=== PATIENT | female | born 1970 | race American Indian/Alaskan Native ===

== ENCOUNTER 2018-09-12 14:05 | Inpatient (IN) | payer OTHER ==
--- NOTE | 2018-09-12 14:29 | Cat Scan Report ---
FINAL REPORT EXAM: CT HEAD/BRAIN WO CON HISTORY: Stroke symptoms TECHNIQUE: CT of the head was performed. No intravenous contrast was administered. PRIORS: None. FINDINGS: There is no evidence of intracranial hemorrhage. There is no edema, mass effect or midline shift. There are no abnormal extra-axial fluid collections. The ventricles are appropriate for brain volume. There is no skull fracture seen. The visualized aspects of the sinuses are clear. IMPRESSION: There is no acute intracranial abnormality identified.
[2018-09-12 14:40] LABS: Hemoglobin 14.3 gm/dl (10.1-14.3); Mean Corpuscular HGB Conc 32 % (30-34); Mean Corpuscular Volume 91 fl (79-97); Platelet Count 315 K/mm3 (140-440); Red Blood Count 4.83 M/mm3 (3.65-5.03); Red Cell Distribution Width 14.6 % (13.2-15.2)
--- NOTE | 2018-09-12 14:42 | Emergency Department Report ---
HPI - General Time Seen by Provider: 09/12/18 14:05 - HPI HPI: 48-year-old -[place] female presents to the emergency department via EMS after she was found having fallen in the kitchen and being found unresponsive. The patient's daughters boyfriend found the patient on the ground with some convulsions. EMS found the patient has some signs of right sided deficits. The patient herself is currently a poor historian secondary to her medical acuity. She has a past medical history of diabetes and gallstones. ED Review of Systems ROS: Stated complaint: POSS STROKE Other details as noted in HPI Comment: Unobtainable due to pts medical conditions Physical Exam - Physical Exam Physical Exam: GENERAL: The patient is ill-appearing and unresponsive. HEENT: Normocephalic. Atraumatic. Patient has moist mucous membranes. EYES: There is a mild left-sided gaze preference. Pupils are equal and reactive to light bilaterally. No spontaneous eye opening. NECK: Supple. Trachea is midline. CHEST/LUNGS: Clear to auscultation. There is no respiratory distress noted. HEART/CARDIOVASCULAR: Regular. There is no tachycardia. There is no obvious murmur. ABDOMEN: Abdomen is soft, nontender. Patient has normal bowel sounds. There is no abdominal distention. SKIN: Skin is warm and dry. NEURO: The patient is unresponsive but does withdraw from painful stimuli with to the left upper and lower extremities. There is barely any right-sided extremity response and appears hemiparetic. There is a mild right-sided facial droop. Positive gag reflex. MUSCULOSKELETAL: There is no obvious deformity. There is no evidence of acute in jury. ED Course - Reevaluation(s) Reevaluation #1: The patient started appearing to have problem with her secretions and has snoring respirations. The decision was made to intubate the patient. The patient was seen immediately after CT scan of the head by the telemedicine neurologist, Dr. Ponce. Dr. Ponce did an evaluation via pvc monitor and called back with her recommendations of giving TPA. I spoke with the patient's sister regarding both the intubation procedure and the TPA. The thought process is that the patient may have had a seizure and this could be postictal, this could be a Jerson's paralysis, but the patient does have right- sided deficits with a right-sided facial droop and mild gaze preference and this could also be a large vessel stroke. The patient falls within the TPA window and does not have any obvious contraindications. The patient's sister is aware of the benefits of giving tPA including improvement in her condition return of some functions. She is aware of the risks of TPA including hemorrhagic conversion of an ischemic stroke or spontaneous hemorrhage. She also un derstands that there is a differential diagnosis that includes the previously mentioned postictal seizure and more Jerson's paralysis. Given all this information, the patient's sister, who says that she is the patient's medical decision maker, has given her permission and understands and has instructed us to proceed with TPA administration. She also understands the reasoning for the intubation and agrees to this procedure as well. 09/12/18 15:41 - Intubation Time Out Performed: Yes Sedative: Etomidate Mg Given: 20 Paralytic: Succinylcholine Mg Given: 100 Laryngoscope: Wagner Size: 4 ET Tube Size: 7.5 Tube Secured Depth (cm): 24 Tube Secured Location: lips Tube Placement Confirmation: visualized tube passing t, equal breath sounds bilat, confirmation by capnometr Patient Tolerated Procedure: well Intubation Complications: none ED Medical Decision Making - Lab Data Result diagrams: 09/12/18 Unknown 09/12/18 Unknown - EKG Data -: EKG Interpreted by Nm EKG shows normal: sinus rhythm, axis, intervals, QRS complexes, ST-T waves Rate: normal - EKG Data When compared to previous EKG there are: previous EKG unavailable Interpretation: normal EKG - Radiology Data Radiology results: report reviewed EXAM: CT CERVICAL SPINE WO CON HISTORY: fall TECHNIQUE: A noncontrast CT of the cervical spine was performed. Coronal and sagittal reformatted images were obtained. PRIORS: None. FINDINGS: There is no evidence of acute fracture. Vertebral body heights and alignment are maintained. There is no evidence of significant spinal stenosis. IMPRESSION: There is no evidence of cervical spine fracture or subluxation. Transcribed By: JASON Dictated By: JOSÉ MIGUEL ABDALLA MD Electronically Authenticated By: JOSÉ MIGUEL ABDALLA MD Signed Date/Time: 09/12/[address] of the head did not show any bleed, shift, mass, ischemia or any other acute intracranial process. EXAM: CT ANGIO HEAD HISTORY: CVA TECHNIQUE: Following IV administration of 100 cc of Omnipaque 350 axial helical imaging was performed through the brain with sagittal and coronal reformatted images and maximum intensity projection images obtained. Comparison: Head CT also performed today FINDINGS: Again noted is the small focus of decreased density in the left putamen/subinsular region which may represent a lacunar infarct of indeterminate age. Differential diagnosis includes a prominent perivascular space. The ventricles are normal size. The visualized portions of the orbits, paranasal and mastoid sinuses are unremarkable. The bony structures are unremarkable. There is normal enhancement of the major intracranial arteries without evidence of occlusion, hemodynamically significant stenosis or aneurysm. IMPRESSION: 1. No evidence of occlusion, hemodynamically significant stenosis or aneurysm of the major intracranial arteries. 2. Area of decreased density left putamen/subinsular region which may represent a lacunar infarct of indeterminate age. Differential diagnosis includes a prominent perivascular space. If there is a clinical suspicion of acute cerebral ischemia, MRI brain may be helpful. Transcribed By: ED Dictated By: EDDIE PERRY MD Electronically Authenticated By: EDDIE PERRY MD Signed Date/Time: 09/12/18 3704 EXAM: CT ANGIO NECK HISTORY: CVA TECHNIQUE: Following IV administration of 100 cc of Omnipaque 350 axial helical imaging was performed through the neck with sagittal and coronal reformatted images and maximum intensity projection images obtained. Comparison: CT cervical spine also performed today FINDINGS: The tip of the endotracheal tube is incompletely imaged but is in the right mainstem bronchus. There is pulmonary consolidation in the left lung apex. Probable atelectasis. There is normal enhancement of the cervical carotid and vertebral arteries wit hout evidence of occlusion, stenosis, dissection or aneurysm. The vertebral arteries are codominant. The cervical soft tissues are notable for mildly prominent bilateral cervical lymph nodes that are nonspecific in appearance but are most likely inflammatory in nature. The bony structures are unremarkable. IMPRESSION: 1. The tip of the endotracheal tube is not entirely included in the field of view but is demonstrated to be in the right mainstem bronchus. 2. No evidence of occlusion, stenosis, dissection or aneurysm of the cervical carotid or vertebral arteries. The above findings were discussed with Dr. Villatoro at 6:11 p.m. September 12, 2018. Transcribed By: ED Dictated By: EDDIE PERRY MD Electronically Authenticated By: EDDIE PERRY MD Signed Date/Time: 09/12/181813 - Medical Decision Making This patient presents to the emergency department after she was found unresponsive in the kitchen. Patient presents with some right-sided deficits. NIH stroke scale comes back at about 26. Patient's family says that there was some seizure-like activity when she was first found on the floor. Stat CT scan of the head was done along with cervical spine. There was no acute bleed, shift, mass, ischemia, subluxation or any other acute processes found. She was seen by the telemedicine neurologist who recommended TPA to be given. Around this time, the patient started having some difficulty with her secretions and some snoring respirations and the decision was made to intubate the patient for protection of airway. Both the intubation procedure and the TPA were discussed with the patient's sister who is her medical decision maker and she understands all of the risks, benefits, reasons for the procedures and medication and understands and agrees. After the patient received the TPA she had CT angiography done of the head and neck that did not show any evidence of occlusion, stenosis, dissection, thrombus or any other acute process. Patient was given a gram of Keppra for her seizure-like activity. Differential diagnosis includes a CVA, Jerson's paralysis, seizures with prolonged postictal state, versus other. The patient is currently intubated on sedation and will be admitted to the ICU for further evaluation and treatment and the patient was accepted for admission by the hospitalist, Dr. Roman. - Differential Diagnosis CVA, Todds Paralysis, Seizure with prolonged post ictal, substance abuse Critical Care Time: Yes Critical care time in (mins) excluding proc time.: 75 Critical care attestation.: If time is entered above; I have spent that time in minutes in the direct care of this critically ill patient, excluding procedure time. Critical care time was spent on this patient during her initial evaluation, multiple re- evaluations, ordering and interpretation of labs and imaging, discussion with the family, discussion with the neurologist and hospitalist, ordering and supervision of TPA administration. This does not include the time spent doing the intubation procedure. Critical Care Time: 75 minutes ED Disposition Clinical Impression: CVA (cerebral vascular accident) Qualifiers: CVA mechanism: unspecified Qualified Code(s): I63.9 - Cerebral infarction, unspecified Hypertension Qualifiers: Hypertension type: essential hypertension Qualified Code(s): I10 - Essential (primary) hypertension Respiratory failure Qualifiers: Chronicity: acute Respiratory failure complication: unspecified whether with hypoxia or hypercapnia Qualified Code(s): J96.00 - Acute respiratory failure, unspecified whether with hypoxia or hypercapnia Disposition: 09 OP ADMIT IP TO THIS HOSP Is pt being admited?: Yes Condition: Critical Time of Disposition: 19:13 - Assessment Assessment Interval: Baseline - Level of Consciousness 1a. Level of Consciousness: resp stimuli/obtunded - LOC Questions 1b. LOC Questions: aphasic - LOC Command 1c. LOC Commands: performs no tasks correctly - Best Gaze 2. Best Gaze: partial gaze palsy - Visual 3. Visual: no visual loss - Facial Palsy 4. Facial Palsy: partial paralysis - Motor Arm 5b. Motor Arm Right: no movement 5a. Motor Arm Left: drift - Motor Leg 6b. Motor Leg Right: no movement 6a. Motor Leg Left: drift - Limb Ataxia 7. Limb Ataxia: absent - Sensory 8. Sensory: no response/quadraplegic - Best Language 9. Best Language: coma/unresponsive - Dysarthria 10. Dysarthria: mute/anarrthric - Extinction and Inattention 11. Extinction/Inattention: no abnormality - Scoring Total Score: 26 Stroke Severity: Severe Stroke
[2018-09-12 14:51] LABS: INR 0.95 (0.87-1.13); Partial Thromboplastin Time 21.1 Sec. (24.2-36.6); Thrombin Time 16.3 Sec. (15.1-19.6)
[2018-09-12 14:59] LABS: Alanine Aminotransferase 19 units/L (7-56); BUN/Creatinine Ratio 15; Blood Urea Nitrogen 12 mg/dL (7-17); Calcium 9.4 mg/dL (8.4-10.2); Hemolysis Index 21
--- NOTE | 2018-09-12 15:03 | Cat Scan Report ---
FINAL REPORT EXAM: CT CERVICAL SPINE WO CON HISTORY: fall TECHNIQUE: A noncontrast CT of the cervical spine was performed. Coronal and sagittal reformatted i mages were obtained. PRIORS: None. FINDINGS: There is no evidence of acute fracture. Vertebral body heights and alignment are maintained. There is no evidence of significant spinal stenosis. IMPRESSION: There is no evidence of cervical spine fracture or subluxation.
[2018-09-12] MEDS ORDERED: CATHFLO ONE (15:11)
[2018-09-12] MEDS ORDERED: ACTIVASE ONE (15:13)
[2018-09-12 15:20] LABS: Creatine Kinase MB < 1.0 ng/mL (0.0-4.0)
[2018-09-12] MEDS ORDERED: VASELINE LIP THERAPY TP PRN (15:20)
[2018-09-12] MEDS ORDERED: ARTIFICIAL TEARS OPHTH OINT OU PRN (15:20)
[2018-09-12] MEDS ORDERED: ACTIVASE IV ONE ×2 (15:21)
[2018-09-12] MEDS ORDERED: NACL 0.9% IV ONE (15:21)
[2018-09-12] MEDS: VERSED IV PRN ×3 (15:29→19:14)
[2018-09-12] MEDS ORDERED: KEPPRA 1,000 MG/NS 0.75% 100ML 1,000 MG/100 ML BAG IV ONE (15:32)
[2018-09-12 15:51] LABS: Basophils % (Manual) 0 % (0.0-1.8); Eosinophils % (Manual) 0 % (0.0-4.3); Platelet Estimate Appe; RBC Morphology Normal; Total Cells Counted 100
[2018-09-12] MEDS ORDERED: MIDAZOLAM 100 MG in NACL 0.9% 80 ML IV SCH (16:00)
[2018-09-12] MEDS ORDERED: BENADRYL IV ONE (16:23)
[2018-09-12] MEDS ORDERED: SOLU-Medrol IV ONE (16:23)
[2018-09-12] MEDS ORDERED: NORMODYNE IV ONE ×2 (16:57→16:59)
[2018-09-12] MEDS ORDERED: APRESOLINE ONE (17:18)
--- NOTE | 2018-09-12 17:30 | Cat Scan Report ---
FINAL REPORT EXAM: CT ANGIO HEAD HISTORY: CVA TECHNIQUE: Following IV administration of 100 cc of Omnipaque 350 axial helical imaging was performe d through the brain with sagittal and coronal reformatted images and maximum intensity projection sonny ges obtained. Comparison: Head CT also performed today FINDINGS: Again noted is the small focus of decreased density in the left putamen/subinsular region which may r epresent a lacunar infarct of indeterminate age. Differential diagnosis includes a prominent perivasc ular space. The ventricles are normal size. The visualized portions of the orbits, paranasal and mastoid sinuses are unremarkable. The bony structures are unremarkable. There is normal enhancement of the major intracranial arteries without evidence of occlusion, hemodyn amically significant stenosis or aneurysm. IMPRESSION: 1. No evidence of occlusion, hemodynamically significant stenosis or aneurysm of the major intracrani al arteries. 2. Area of decreased density left putamen/subinsular region which may represent a lacunar infarct of indeterminate age. Differential diagnosis includes a prominent perivascular space. If there is a clinical suspicion of acute cerebral ischemia, MRI brain may be helpful.
--- NOTE | 2018-09-12 18:14 | Cat Scan Report ---
FINAL REPORT EXAM: CT ANGIO NECK HISTORY: CVA TECHNIQUE: Following IV administration of 100 cc of Omnipaque 350 axial helical imaging was performe d through the neck with sagittal and coronal reformatted images and maximum intensity projection imag es obtained. Comparison: CT cervical spine also performed today FINDINGS: The tip of the endotracheal tube is incompletely imaged but is in the right mainstem bronchus. There is pulmonary consolidation in the left lung apex. Probable atelectasis. There is normal enhancement of the cervical carotid and vertebral arteries without evidence of occlus ion, stenosis, dissection or aneurysm. The vertebral arteries are codominant. The cervical soft tissues are notable for mildly prominent bilateral cervical lymph nodes that are no nspecific in appearance but are most likely inflammatory in nature. The bony structures are unremarkable. IMPRESSION: 1. The tip of the endotracheal tube is not entirely included in the field of view but is demonstrated to be in the right mainstem bronchus. 2. No evidence of occlusion, stenosis, dissection or aneurysm of the cervical carotid or vertebral ar teries. The above findings were discussed with Dr. Villatoro at 6:11 p.m. September 12, 2018.
[2018-09-12] MEDS ORDERED: SUBLIMAZE IV PRN (18:55)
[2018-09-12] MEDS ORDERED: fentaNYL DRIP Premix 2,000 MCG/100 ML BAG IV SCH (19:00)
[2018-09-12] MEDS ORDERED: SODIUM CHLORIDE FLUSH SYRINGE 10 ML IV PRN ×2 (19:30→20:20)
[2018-09-12] MEDS ORDERED: ZOFRAN IV PRN (19:30)
[2018-09-12] MEDS ORDERED: TYLENOL PO PRN (19:30)
--- NOTE | 2018-09-12 19:30 | History and Physical Report ---
History of Present Illness Date of examination: 09/12/18 Medications and Allergies Allergies Allergy/AdvReac Type Severity Reaction Status Date / Time alteplase AdvReac Angioedema Verified 09/12/18 17:10 Active Meds: Active Medications Fentanyl (Sublimaze) 50 mcg IV Q10MIN PRN PRN Reason: ANALGESIA Hydrophilic Ointment (Vaseline Lip Therapy) 1 applic TP Q2HR PRN PRN Reason: Dry Lips Midazolam HCl 100 mg/ Sodium (Chloride) 100 mls @ 2 mls/hr IV TITR RONAL; Protoco l Last Admin: 09/12/18 16:10 Dose: 2 mg/hr, 2 mls/hr Documented by: Fentanyl Citrate (Fentanyl Drip Premix) 2,000 mcg in 100 mls @ 4.99 mls/hr IV TITR RONAL; Protocol Midazolam HCl (Versed) 2 mg IV Q10MIN PRN PRN Reason: Sedation Last Admin: 09/12/18 19:14 Dose: 2 mg Documented by: Multi-Ingred Cream/Lotion/Oil/Oint (Artificial Tears Ophth Oint) 1 applic OU Q4HR PRN PRN Reason: Dry Eye(s) Exam - Constitutional Vitals: Temp Pulse Resp BP Pulse Ox 103 H 20 146/89 100 09/12/18 19:15 09/12/18 19:15 09/12/18 19:15 09/12/18 19:15 Results - Labs CBC & Chem 7: 09/12/18 Unknown 09/12/18 Unknown Labs: Laboratory Last Values WBC 9.2 K/mm3 (4.5-11.0) 09/12/18 Unknown RBC 4.83 M/mm3 (3.65-5.03) 09/12/18 Unknown Hgb 14.3 gm/dl (10.1-14.3) 09/12/18 Unknown Hct 44.0 % (30.3-42.9) H 09/12/18 Unknown MCV 91 fl (79-97) 09/12/18 Unknown MCH 30 pg (28-32) 09/12/18 Unknown MCHC 32 % (30-34) 09/12/18 Unknown RDW 14.6 % (13.2-15.2) 09/12/18 Unknown Plt Count 315 K/mm3 (140-440) 09/12/18 Unknown Lymph % (Auto) Senior Hr Business Partner 09/12/18 Unknown Lymph # Senior Hr Business Partner 09/12/18 Unknown Add Manual Diff Complete 09/12/18 Unknown Total Counted 100 09/12/18 Unknown Seg Neutrophils % Senior [employer]r [employer] Partner 09/12/18 Unknown Seg Neuts % (Manual) 34.0 % (40.0-70.0) L 09/12/18 Unknown Band Neutrophils % 0 % 09/12/18 Unknown Lymphocytes % (Manual) 59.0 % (13.4-35.0) H 09/12/18 Unknown Reactive Lymphs % (Man) 0 % 09/12/18 Unknown Monocytes % (Manual) 7.0 % (0.0-7.3) 09/12/18 Unknown Eosinophils % (Manual) 0 % (0.0-4.3) 09/12/18 Unknown Basophils % (Manual) 0 % (0.0-1.8) 09/12/18 Unknown Metamyelocytes % 0 % 09/12/18 Unknown Myelocytes % 0 % 09/12/18 Unknown Promyelocytes % 0 % 09/12/18 Unknown Blast Cells % 0 % 09/12/18 Unknown Nucleated RBC % Not Reportable 09/12/18 Unknown Seg Neutrophils # Man 3.1 K/mm3 (1.8-7.7) 09/12/18 Unknown Band Neutrophils # 0.0 K/mm3 09/12/18 Unknown Lymphocytes # (Manual) 5.4 K/mm3 (1.2-5.4) 09/12/18 Unknown Abs React Lymphs (Man) 0.0 K/mm3 09/12/18 Unknown Monocytes # (Manual) 0.6 K/mm3 (0.0-0.8) 09/12/18 Unknown Eosinophils # (Manual) 0.0 K/mm3 (0.0-0.4) 09/12/18 Unknown Basophils # (Manual) 0.0 K/mm3 (0.0-0.1) 09/12/18 Unknown Metamyelocytes # 0.0 K/mm3 09/12/18 Unknown Myelocytes # 0.0 K/mm3 09/12/18 Unknown Promyelocytes # 0.0 K/mm3 09/12/18 Unknown Blast Cells # 0.0 K/mm3 09/12/18 Unknown WBC Morphology Not Reportable 09/12/18 Unknown Hypersegmented Neuts Not Reportable 09/12/18 Unknown Hyposegmented Neuts Not Reportable 09/12/18 Unknown Hypogranular Neuts Not Reportable 09/12/18 Unknown Smudge Cells Not Reportable 09/12/18 Unknown Toxic Granulation Not Reportable 09/12/18 Unknown Toxic Vacuolation Not Reportable 09/12/18 Unknown Dohle Bodies Not Reportable 09/12/18 Unknown Pelger-Huet Anomaly Not Reportable 09/12/18 Unknown Alf Rods Not Reportable 09/12/18 Unknown Platelet Estimate Appe 09/12/18 Unknown Clumped Platelets Not Reportable 09/12/18 Unknown Plt Clumps, EDTA Not Reportable 09/12/18 Unknown Large Platelets Not Reportable 09/12/18 Unknown Giant Platelets Not Reportable 09/12/18 Unknown Platelet Satelliting Not Reportable 09/12/18 Unknown Plt Morphology Comment Not Reportable 09/12/18 Unknown RBC Morphology Normal 09/12/18 Unknown Dimorphic RBCs Not Reportable 09/12/18 Unknown Polychromasia Not Reportable 09/12/18 Unknown Hypochromasia Not Reportable 09/12/18 Unknown Poikilocytosis Not Reportable 09/12/18 Unknown Anisocytosis Not Reportable 09/12/18 Unknown Microcytosis Not Reportable 09/12/18 Unknown Macrocytosis Not Reportable 09/12/18 Unknown Spherocytes Not Reportable 09/12/18 Unknown Pappenheimer Bodies Not Reportable 09/12/18 Unknown Sickle Cells Not Reportable 09/12/18 Unknown Target Cells Not Reportable 09/12/18 Unknown Tear Drop Cells Not Reportable 09/12/18 Unknown Ovalocytes Not Reportable 09/12/18 Unknown Helmet Cells Not Reportable 09/12/18 Unknown [place] Bodies Not Reportable 09/12/18 Unknown [place] Rings Not Reportable 09/12/18 Unknown [place] Cells Not Reportable 09/12/18 Unknown Bite Cells Not Reportable 09/12/18 Unknown Crenated Cell Not Reportable 09/12/18 Unknown Elliptocytes Not Reportable 09/12/18 Unknown Acanthocytes (Spur) Not Reportable 09/12/18 Unknown Rouleaux Not Reportable 09/12/18 Unknown Hemoglobin C Crystals Not Reportable 09/12/18 Unknown Schistocytes Not Reportable 09/12/18 Unknown Malaria parasites Not Reportable 09/12/18 Unknown Emery Bodies Not Reportable 09/12/18 Unknown Hem Pathologist Commnt No 09/12/18 Unknown PT 13.2 Sec. (12.2-14.9) 09/12/18 Unknown INR 0.95 (0.87-1.13) 09/12/18 Unknown APTT 21.1 Sec. (24.2-36.6) L 09/12/18 Unknown Thrombin Time 16.3 Sec. (15.1-19.6) 09/12/18 Unknown Sodium 141 mmol/L (137-145) 09/12/18 Unknown Potassium 3.5 mmol/L (3.6-5.0) L 09/12/18 Unknown Chloride 102.6 mmol/L (98-107) 09/12/18 Unknown Carbon Dioxide 25 mmol/L (22-30) 09/12/18 Unknown Anion Gap 17 mmol/L 09/12/18 Unknown BUN 12 mg/dL (7-17) 09/12/18 Unknown Creatinine 0.8 mg/dL (0.7-1.2) 09/12/18 Unknown Estimated GFR > 60 ml/min 09/12/18 Unknown BUN/Creatinine Ratio 15 % 09/12/18 Unknown Glucose 213 mg/dL (65-100) H 09/12/18 Unknown POC Glucose 194 (70-105) H 09/12/18 14:56 Calcium 9.4 mg/dL (8.4-10.2) 09/12/18 Unknown Total Bilirubin 0.20 mg/dL (0.1-1.2) 09/12/18 Unknown AST 16 units/L (5-40) 09/12/18 Unknown ALT 19 units/L (7-56) 09/12/18 Unknown Alkaline Phosphatase 90 units/L (35-129) 09/12/18 Unknown Total Creatine Kinase 32 units/L (30-135) 09/12/18 Unknown CK-MB (CK-2) < 1.0 ng/mL (0.0-4.0) 09/12/18 Unknown CK-MB (CK-2) Rel Index 3.1 (0-4) 09/12/18 Unknown Troponin T < 0.010 ng/mL (0.00-0.029) 09/12/18 Unknown Total Protein 7.4 g/dL (6.3-8.2) 09/12/18 Unknown Albumin 4.0 g/dL (3.9-5) 09/12/18 Unknown Albumin/Globulin Ratio 1.2 % 09/12/18 Unknown Plasma/Serum Alcohol < 0.01 % (0-0.07) 09/12/18 Unknown Blood Type O POSITIVE 09/12/18 14:25 Antibody Screen Negative 09/12/18 14:25
[2018-09-12] MEDS ORDERED: DILAUDID IV PRN (19:33)
[2018-09-12] MEDS ORDERED: SODIUM BICARBONATE FEEDTUBE PRN (19:35)
[2018-09-12] MEDS ORDERED: SIMPLE SYRUP FEEDTUBE PRN ×2 (19:35)
[2018-09-12] MEDS ORDERED: PANCREAZE DR 10,500 UNIT FEEDTUBE PRN (19:35)
[2018-09-12] MEDS ORDERED: NACL 0.45% 1000 ML 1,000 ML IV ONE ×2 (20:01)
[2018-09-12] MEDS: NACL 0.45% 1000 ML 1,000 ML IV SCH (20:04)
[2018-09-12] MEDS ORDERED: KCL 10MEQ/100ML 10 MEQ/100 ML BAG IV ONE ×2 (20:25→21:21)
[2018-09-12] MEDS ORDERED: HumaLOG SUB-Q ONE ×2 (20:26→21:21)
[2018-09-12 21:31] LABS: Chol/HDL Ratio 4.25 %
[2018-09-12] MEDS ORDERED: HEPARIN SUB-Q SCH (22:00)
[2018-09-12] MEDS ORDERED: AMIDATE IV ONE (23:00)
[2018-09-12] MEDS ORDERED: VERSED IV ONE (23:00)
[2018-09-12] MEDS ORDERED: QUELICIN ONE (23:00)
--- NOTE | 2018-09-13 02:44 | XRay Report ---
FINAL REPORT PROCEDURE: XR CHEST 1V AP TECHNIQUE: Chest radiograph anteroposterior view. CPT 12097 HISTORY: follow up respiratory failure COMPARISON: 09/12/2018 FINDINGS: Heart: Normal. Mediastinum/Vessels: Normal. Lungs/Pleural space: Normal. Bony thorax: No acute osseous abnormality. Life support devices: The endotracheal tube ends 5 centimeters above the ayla. IMPRESSION: There is no evidence of an acute infiltrate or effusion. The endotracheal tube ends 5 centimeters abo ve the ayla..
--- NOTE | 2018-09-13 05:11 | Event Note ---
Date: 09/12/18 Acxute CVA Resp failure--Intubated for airway protection
[2018-09-13 05:13] LABS: Basophils % (Auto) 0.2 % (0.0-1.8); Hematocrit 42.2 % (30.3-42.9); Hemoglobin 13.7 gm/dl (10.1-14.3); Lymphocytes # (Auto) 2.3 K/mm3 (1.2-5.4); Lymphocytes % (Auto) 15.9 % (13.4-35.0); Mean Corpuscular HGB Conc 33 % (30-34); Mean Corpuscular Volume 90 fl (79-97); Monocytes # (Auto) 0.2 K/mm3 (0.0-0.8); Monocytes % (Auto) 1.6 % (0.0-7.3); Platelet Count 318 K/mm3 (140-440); Red Blood Count 4.71 M/mm3 (3.65-5.03); Red Cell Distribution Width 14.7 % (13.2-15.2)
[2018-09-13 05:39] LABS: Alanine Aminotransferase 20 units/L (7-56); BUN/Creatinine Ratio 15; Blood Urea Nitrogen 12 mg/dL (7-17); Calcium 9.2 mg/dL (8.4-10.2); Hemolysis Index 5
[2018-09-13] MEDS ORDERED: LOPRESSOR IV ONE (05:43)
--- NOTE | 2018-09-13 06:02 | History and Physical Report ---
CHIEF COMPLAINT: Right-sided weakness. HISTORY OF PRESENT ILLNESS: A 48-year-old -[place] female who was brought in via EMS after she was found unresponsive on the kitchen floor. The patient's daughter found the patient on the ground with apparent seizures. The daughter is not able to describe the seizures properly. The patient also had right-sided weakness when the EMS arrived. In the ER, the patient was not able to protect her airway and staff proceeded to intubate her. Her sats were normal. PAST MEDICAL HISTORY: Significant for hypertension, but no other active problems. PAST SURGICAL HISTORY: Unavailable. FAMILY HISTORY: Unavailable. SOCIAL HISTORY: Does not smoke. No alcohol, no recreational drugs. REVIEW OF SYSTEMS: Significant for right-sided weakness and decreased responsiveness. PHYSICAL EXAMINATION: VITAL SIGNS: Blood pressure 122/78, temperature 98, pulse 93, respirations 20. HEENT: Unremarkable. Right facial droop present. NECK: Supple, no lymphadenopathy, no thyromegaly. LUNGS: Clear to auscultation and percussion. Good air entry. CARDIOVASCULAR: S1, S2 heard. No gallop, no murmur, no rub. Apical impulse in left fifth intercostal space and midclavicular line. ABDOMEN: Soft and benign. No hepatosplenomegaly. No guarding, no rigidity. Hernial orifices are normal. EXTREMITIES: Good pedal pulses. No pedal edema. CENTRAL NERVOUS SYSTEM: Unresponsive. Also right-sided weakness present. Flaccid, both right upper and right lower extremity. The patient has 0/5 power in the right upper and right lower extremity. She is unresponsive secondary to sedation and stroke, cerebrovascular accident. SKIN: Normal. LABORATORY DATA: Significant for white count of 9200, H and H is 14.3 and 44.0, platelet count is normal. Electrolytes are normal. Glucose is high at 291. Hemoglobin A1c is 9.4. ASSESSMENT AND PLAN: 1. Acute cerebrovascular accident with altered mental status. Continue supportive care for CVA. Get MRI/MRA, echocardiogram, and carotid duplex scan. 2.Acute Resp failure--Intubated for airway protection.Duonebs as necessary 3. Hypertension. Continue antihypertensives. 4. Type 2 diabetes, coverage. 5. Deep venous thrombosis prophylaxis, Lovenox 40 mg subcutaneous daily. CCT 40 mins JOB# [id number] HARVEY/MARIBEL [place]
--- NOTE | 2018-09-13 08:42 | Progress Note ---
Assessment and Plan Assessment and plan: Acute ischemic stroke, bilateral multiple infarcts with subarachnoid hemorrhage s/p tPA given in ED Possibly embolic Admitted to ICU Discussed case with Dr. Agosto Seizures On Keppra Acute resp failure Intubated Pulm following Hypertension Monitor BP Full code status May need LITO pending TTE report. Prognosis guarded History Interval history: Patient presented with right sided weakness, unresponsive, seizures, diagnosed with stroke given TPA Hospitalist Physical - Physical exam Narrative exam: GEN: Intubated, ill looking,,morbidly obese HEENT: Normocephalic, atraumatic, Neck: supple, No JVD Lungs: Clear to auscultation, no wheeze Heart:S1 and S2 regular, no murmurs, rubs or gallop, Abd:soft, non tender, non distended, normal bowel sounds Ext: No edema, no clubbing or cyanosis Neuro: Intubated, unresponsive, does not follow commands - Constitutional Vitals: Temp Pulse Resp BP Pulse Ox 98.8 F 79 19 133/67 100 09/13/18 03:12 09/13/18 08:06 09/13/18 07:00 09/13/18 08:06 09/13/18 08:06 Results - Labs CBC & Chem 7: 09/13/18 04:19 09/13/18 04:19 Labs: Laboratory Last Values WBC 14.3 K/mm3 (4.5-11.0) H 09/13/18 04:19 RBC 4.71 M/mm3 (3.65-5.03) 09/13/18 04:19 Hgb 13.7 gm/dl (10.1-14.3) 09/13/18 04:19 Hct 42.2 % (30.3-42.9) 09/13/18 04:19 MCV 90 fl (79-97) 09/13/18 04:19 MCH 29 pg (28-32) 09/13/18 04:19 MCHC 33 % (30-34) 09/13/18 04:19 RDW 14.7 % (13.2-15.2) 09/13/18 04:19 Plt Count 318 K/mm3 (140-440) 09/13/18 04:19 Lymph % (Auto) 15.9 % (13.4-35.0) 09/13/18 04:19 [place] % (Auto) 1.6 % (0.0-7.3) 09/13/18 04:19 Eos % (Auto) 0.0 % (0.0-4.3) 09/13/18 04:19 Baso % (Auto) 0.2 % (0.0-1.8) 09/13/18 04:19 Lymph # 2.3 K/mm3 (1.2-5.4) 09/13/18 04:19 [place] # 0.2 K/mm3 (0.0-0.8) 09/13/18 04:19 Eos # 0.0 K/mm3 (0.0-0.4) 09/13/18 04:19 Baso # 0.0 K/mm3 (0.0-0.1) 09/13/18 04:19 Add Manual Diff Complete 09/12/18 Unknown Total Counted 100 09/12/18 Unknown Seg Neutrophils % 82.3 % (40.0-70.0) H 09/13/18 04:19 Seg Neuts % (Manual) 34.0 % (40.0-70.0) L 09/12/18 Unknown Band Neutrophils % 0 % 09/12/18 Unknown Lymphocytes % (Manual) 59.0 % (13.4-35.0) H 09/12/18 Unknown Reactive Lymphs % (Man) 0 % 09/12/18 Unknown Monocytes % (Manual) 7.0 % (0.0-7.3) 09/12/18 Unknown Eosinophils % (Manual) 0 % (0.0-4.3) 09/12/18 Unknown Basophils % (Manual) 0 % (0.0-1.8) 09/12/18 Unknown Metamyelocytes % 0 % 09/12/18 Unknown Myelocytes % 0 % 09/12/18 Unknown Promyelocytes % 0 % 09/12/18 Unknown Blast Cells % 0 % 09/12/18 Unknown Nucleated RBC % Not Reportable 09/12/18 Unknown Seg Neutrophils # 11.7 K/mm3 (1.8-7.7) H 09/13/18 04:19 Seg Neutrophils # Man 3.1 K/mm3 (1.8-7.7) 09/12/18 Unknown Band Neutrophils # 0.0 K/mm3 09/12/18 Unknown Lymphocytes # (Manual) 5.4 K/mm3 (1.2-5.4) 09/12/18 Unknown Abs React Lymphs (Man) 0.0 K/mm3 09/12/18 Unknown Monocytes # (Manual) 0.6 K/mm3 (0.0-0.8) 09/12/18 Unknown Eosinophils # (Manual) 0.0 K/mm3 (0.0-0.4) 09/12/18 Unknown Basophils # (Manual) 0.0 K/mm3 (0.0-0.1) 09/12/18 Unknown Metamyelocytes # 0.0 K/mm3 09/12/18 Unknown Myelocytes # 0.0 K/mm3 09/12/18 Unknown Promyelocytes # 0.0 K/mm3 09/12/18 Unknown Blast Cells # 0.0 K/mm3 09/12/18 Unknown WBC Morphology Not Reportable 09/12/18 Unknown Hypersegmented Neuts Not Reportable 09/12/18 Unknown Hyposegmented Neuts Not Reportable 09/12/18 Unknown Hypogranular Neuts Not Reportable 09/12/18 Unknown Smudge Cells Not Reportable 09/12/18 Unknown Toxic Granulation Not Reportable 09/12/18 Unknown Toxic Vacuolation Not Reportable 09/12/18 Unknown Dohle Bodies Not Reportable 09/12/18 Unknown Pelger-Huet Anomaly Not Reportable 09/12/18 Unknown Alf Rods Not Reportable 09/12/18 Unknown Platelet Estimate Appe 09/12/18 Unknown Clumped Platelets Not Reportable 09/12/18 Unknown Plt Clumps, EDTA Not Reportable 09/12/18 Unknown Large Platelets Not Reportable 09/12/18 Unknown Giant Platelets Not Reportable 09/12/18 Unknown Platelet Satelliting Not Reportable 09/12/18 Unknown Plt Morphology Comment Not Reportable 09/12/18 Unknown RBC Morphology Normal 09/12/18 Unknown Dimorphic RBCs Not Reportable 09/12/18 Unknown Polychromasia Not Reportable 09/12/18 Unknown Hypochromasia Not Reportable 09/12/18 Unknown Poikilocytosis Not Reportable 09/12/18 Unknown Anisocytosis Not Reportable 09/12/18 Unknown Microcytosis Not Reportable 09/12/18 Unknown Macrocytosis Not Reportable 09/12/18 Unknown Spherocytes Not Reportable 09/12/18 Unknown Pappenheimer Bodies Not Reportable 09/12/18 Unknown Sickle Cells Not Reportable 09/12/18 Unknown Target Cells Not Reportable 09/12/18 Unknown Tear Drop Cells Not Reportable 09/12/18 Unknown Ovalocytes Not Reportable 09/12/18 Unknown Helmet Cells Not Reportable 09/12/18 Unknown Deal-Tigard Bodies Not Reportable 09/12/18 Unknown Squire Rings Not Reportable 09/12/18 Unknown Gonzales Cells Not Reportable 09/12/18 Unknown Bite Cells Not Reportable 09/12/18 Unknown Crenated Cell Not Reportable 09/12/18 Unknown Elliptocytes Not Reportable 09/12/18 Unknown Acanthocytes (Spur) Not Reportable 09/12/18 Unknown Rouleaux Not Reportable 09/12/18 Unknown Hemoglobin C Crystals Not Reportable 09/12/18 Unknown Schistocytes Not Reportable 09/12/18 Unknown Malaria parasites Not Reportable 09/12/18 Unknown Emery Bodies Not Reportable 09/12/18 Unknown Hem Pathologist Commnt No 09/12/18 Unknown PT 13.2 Sec. (12.2-14.9) 09/12/18 Unknown INR 0.95 (0.87-1.13) 09/12/18 Unknown APTT 21.1 Sec. (24.2-36.6) L 09/12/18 Unknown Thrombin Time 16.3 Sec. (15.1-19.6) 09/12/18 Unknown POC ABG pH 7.414 (7.35-7.45) 09/13/18 05:12 POC ABG pCO2 36.2 (35-45) 09/13/18 05:12 POC ABG pO2 99 (80-105) 09/13/18 05:12 POC ABG HCO3 23.2 09/13/18 05:12 POC ABG Total CO2 24 09/13/18 05:12 POC ABG O2 Sat 98 09/13/18 05:12 POC ABG Base Excess -1 09/13/18 05:12 FiO2 50 % 09/13/18 05:12 Sodium 140 mmol/L (137-145) 09/13/18 04:19 Potassium 4.1 mmol/L (3.6-5.0) 09/13/18 04:19 Chloride 101.7 mmol/L (98-107) 09/13/18 04:19 Carbon Dioxide 22 mmol/L (22-30) 09/13/18 04:19 Anion Gap 20 mmol/L 09/13/18 04:19 BUN 12 mg/dL (7-17) 09/13/18 04:19 Creatinine 0.8 mg/dL (0.7-1.2) 09/13/18 04:19 Estimated GFR > 60 ml/min 09/13/18 04:19 BUN/Creatinine Ratio 15 % 09/13/18 04:19 Glucose 289 mg/dL (65-100) H 09/13/18 04:19 POC Glucose 279 (70-105) H 09/13/18 05:42 Hemoglobin A1c 9.6 % (4-6) H 09/12/18 20:11 Calcium 9.2 mg/dL (8.4-10.2) 09/13/18 04:19 Total Bilirubin 0.30 mg/dL (0.1-1.2) 09/13/18 04:19 AST 21 units/L (5-40) 09/13/18 04:19 ALT 20 units/L (7-56) 09/13/18 04:19 Alkaline Phosphatase 83 units/L (35-129) 09/13/18 04:19 Total Creatine Kinase 32 units/L (30-135) 09/12/18 Unknown CK-MB (CK-2) < 1.0 ng/mL (0.0-4.0) 09/12/18 Unknown CK-MB (CK-2) Rel Index 3.1 (0-4) 09/12/18 Unknown Troponin T < 0.010 ng/mL (0.00-0.029) 09/12/18 Unknown Total Protein 7.0 g/dL (6.3-8.2) 09/13/18 04:19 Albumin 4.0 g/dL (3.9-5) 09/13/18 04:19 Albumin/Globulin Ratio 1.3 % 09/13/18 04:19 Triglycerides 83 mg/dL (2-149) 09/12/18 20:11 Cholesterol 166 mg/dL (50-199) 09/12/18 20:11 LDL Cholesterol Direct 122 mg/dL (50-130) 09/12/18 20:11 HDL Cholesterol 39 mg/dL (40-59) L 09/12/18 20:11 Cholesterol/HDL Ratio 4.25 % 09/12/18 20:11 Plasma/Serum Alcohol < 0.01 % (0-0.07) 09/12/18 Unknown Blood Type O POSITIVE 09/12/18 14:25 Antibody Screen Negative 09/12/18 14:25
[2018-09-13] MEDS: SODIUM CHLORIDE FLUSH SYRINGE 10 ML IV SCH ×2 (08:49→10:00)
[2018-09-13] MEDS: NACL 0.45% 1000 ML 1,000 ML IV SCH (09:21)
[2018-09-13] MEDS ORDERED: NON-FORMULARY (Atorvastatin 20 MG) PO SCH (10:00)
--- NOTE | 2018-09-13 10:40 | Vascular Lab Report ---
FINAL REPORT EXAM: VL CAROTID DUPLEX BILAT HISTORY: stroke TECHNIQUE: Carotid ultrasound. Degree of carotid stenosis calculated by indirect methods via the pea k systolic velocities of the ICA and CCA and reference with the society of Radiologist and Ultras[employer] consensus conference radiology 2003. PRIORS: None currently available. FINDINGS: RIGHT CCA, ICA, and ECA (cm/s): 132, 96, and 152. Ratio = 0.73. LEFT CCA, ICA, and ECA (cm/s): 144, 96, and 134. Ratio = 0.67. There is plaque in both carotids. Both vertebral arteries demonstrate antegrade flow. Normal spectral rhythm is identified. IMPRESSION: No hemodynamically significant (> 50%) stenosis noted based on the ratios, velocities, and color D oppler images.
[2018-09-13] MEDS: PEPCID IV SCH ×2 (14:11→23:38)
[2018-09-13] MEDS ORDERED: KEPPRA 2,000 MG in NACL 0.9% 100 ML IV ONE (17:30)
--- NOTE | 2018-09-13 17:56 | Magnetic Resonance Report ---
FINAL REPORT EXAM: MR BRAIN WO CON HISTORY: stroke TECHNIQUE: MRI brain without contrast PRIORS: Correlated with prior CT head September 12, 2018 FINDINGS: On diffusion weighted images multiple areas of acute diffusion restriction are identified. There is a large area of extending through the cortical ends subcortical the region left posterior parietal lob e. Additionally noted within the left frontal temporal region are multiple smaller foci as well as a more prominent focus within the inferior left frontal lobe. There is a moderate sized right temporal focus of acute restriction. Additional of punctate not large ly cortical foci are seen scattered right frontal temporal and parietal regions. Corresponding areas of mildly increased T2 signal are noted on FLAIR sequence. On gradient echo sequence there is some susceptibility artifact seen in extra-axial distribution left posterior parietal region. The CSF spaces bilaterally posteriorly appear symmetric. On FLAIR sequenc e there is increased T2 signal present within a multiple sulci and left occipital, posterior parietal and temporal regions. These appear isointense on T1 weighted sequence. Findings suspicious for left subarachnoid hemorrhage which is likely subacute to chronic. Ventricles are normal in size and position. No evidence for mass effect or generalized brain edema pa ttern. IMPRESSION: Findings consistent with were multiple acute infarcts involving left and right parietal, frontal and temporal distributions. Findings are suggestive of embolic source. Abnormal signal within left posterior temporal and parietal sulci most consistent with subarachnoid h emorrhage. This is likely subacute to chronic.
--- NOTE | 2018-09-13 18:02 | Consultation ---
History of Present Illness Consult date: 09/13/18 Requesting physician: KELSI HUGO Reason for consult: other (Acute respiratory failure) History of present illness: 48 yo apparently went unresponsive at home, reports of some seizure-like activity. Brought to ED, given TPA for acute CVA. Mentation deteriorated and she developed snoring respirations, thus intubated for airway protection. She is currently poorly responsive on the ventilator. Neurologist is at the bedside examining the patient. She cannot give history which is taken via chart review. Active Medications Acetaminophen (Tylenol) 650 mg PO Q4H PRN PRN Reason: Pain MILD(1-3)/Fever >100.5/WALLACE Lipase/Protease/Amylase (Pancreaze Dr 10,500 Unit) 1 each FEEDTUBE PRN PRN PRN Reason: For Clogged Feeding Tube Atorvastatin Calcium (Lipitor) 20 mg PO DAILY [facility] Last Admin: 09/13/18 14:11 Dose: Not Given Documented by: Famotidine (Pepcid) 20 mg IV BID RONAL Last Admin: 09/13/18 14:11 Dose: Not Given Documented by: Fentanyl (Sublimaze) 50 mcg IV Q10MIN PRN PRN Reason: ANALGESIA Hydromorphone HCl (Dilaudid) 0.5 mg IV Q3H PRN PRN Reason: Pain , Severe (7-10) Hydrophilic Ointment (Vaseline Lip Therapy) 1 applic TP Q2HR PRN PRN Reason: Dry Lips Midazolam HCl 100 mg/ Sodium (Chloride) 100 mls @ 2 mls/hr IV TITR RONAL; Protocol Last Titration: 09/13/18 09:21 Dose: 0 mg/hr, 0 mls/hr Documented by: Fentanyl Citrate (Fentanyl Drip Premix) 2,000 mcg in 100 mls @ 4.99 mls/hr IV TITR RONAL; Protocol Last Titration: 09/13/18 10:00 Dose: 0 mcg/kg/hr, 0 mls/hr Documented by: Sodium Chloride (Nacl 0.45% 1000 Ml) 1,000 mls @ 75 mls/hr IV DIRECT RONAL Stop: 09/13/18 19:00 Last Admin: 09/13/18 09:21 Dose: 75 mls/hr Documented by: Sodium Chloride (Nacl 0.9% 1000 Ml) 1,000 mls @ 75 mls/hr IV DIRECT RONAL Levetiracetam 500 mg/ Sodium (Chloride) 105 mls @ 400 mls/hr IV Q6HR [facility] Midazolam HCl (Versed) 2 mg IV Q10MIN PRN PRN Reason: Sedation Last Admin: 09/12/18 19:14 Dose: 2 mg Documented by: Multi-Ingred Cream/Lotion/Oil/Oint (Artificial Tears Ophth Oint) 1 applic OU Q4HR PRN PRN Reason: Dry Eye(s) Ondansetron HCl (Zofran) 4 mg IV Q8H PRN PRN Reason: Nausea And Vomiting Simple Syrup (Simple Syrup) 15 ml FEEDTUBE PRN PRN PRN Reason: Hypoglycemia Simple Syrup (Simple Syrup) 30 ml FEEDTUBE PRN PRN PRN Reason: Hypoglycemia Sodium Bicarbonate (Sodium Bicarbonate) 325 mg FEEDTUBE PRN PRN PRN Reason: For Clogged Feeding Tube Sodium Chloride (Sodium Chloride Flush Syringe 10 Ml) 10 ml IV BID [facility] Last Admin: 09/13/18 08:49 Dose: Not Given Documented by: Sodium Chloride (Sodium Chloride Flush Syringe 10 Ml) 10 ml IV PRN PRN PRN Reason: LINE FLUSH Past History Past Medical History: other (HTN, DM, Hyperlipidemia) Social history: full code. denies: smoking, alcohol abuse, prescription drug abuse, IV drug use Family history: other (No pulm issues reported) Medications and Allergies Allergies Allergy/AdvReac Type Severity Reaction Status Date / Time alteplase AdvReac Angioedema Verified 09/12/18 17:10 Home Medications Medication Instructions Recorded Confirmed Last Taken Type AtorvaSTATin 20 mg PO DAILY 09/13/18 09/13/18 Unknown History Lisinopril/Hydrochlorothiazide 20 mg PO DAILY 09/13/18 09/13/18 Unknown History Metformin HCl [Metformin HCl ER] 1,000 mg PO BID 09/13/18 09/13/18 Unknown History Active Meds: Active Medications Acetaminophen (Tylenol) 650 mg PO Q4H PRN PRN Reason: Pain MILD(1-3)/Fever >100.5/W[place]ACE Lipase/Protease/Amylase ([place] 10,500 Unit) 1 each FEEDTUBE PRN PRN PRN Reason: For Clogged Feeding Tube Atorvastatin Calcium (Lipitor) 20 mg PO DAILY [facility] Last Admin: 09/13/18 14:11 Dose: Not Given Documented by: Famotidine (Pepcid) 20 mg IV BID RONAL Last Admin: 09/13/18 14:11 Dose: Not Given Documented by: Fentanyl (Sublimaze) 50 mcg IV Q10MIN PRN PRN Reason: ANALGESIA Hydromorphone HCl (Dilaudid) 0.5 mg IV Q3H PRN PRN Reason: Pain , Severe (7-10) Hydrophilic Ointment (Vaseline Lip Therapy) 1 applic TP Q2HR PRN PRN Reason: Dry Lips Midazolam HCl 100 mg/ Sodium (Chloride) 100 mls @ 2 mls/hr IV TITR RONAL; Protocol Last Titration: 09/13/18 09:21 Dose: 0 mg/hr, 0 mls/hr Documented by: Fentanyl Citrate (Fentanyl Drip Premix) 2,000 mcg in 100 mls @ 4.99 mls/hr IV TITR RONAL; Protocol Last Titration: 09/13/18 10:00 Dose: 0 mcg/kg/hr, 0 mls/hr Documented by: Sodium Chloride (Nacl 0.45% 1000 Ml) 1,000 mls @ 75 mls/hr IV DIRECT RONAL Stop: 09/13/18 19:00 Last Admin: 09/13/18 09:21 Dose: 75 mls/hr Documented by: Sodium Chloride (Nacl 0.9% 1000 Ml) 1,000 mls @ 75 mls/hr IV DIRECT RONAL Levetiracetam 500 mg/ Sodium (Chloride) 105 mls @ 400 mls/hr IV Q6HR RONAL Midazolam HCl (Versed) 2 mg IV Q10MIN PRN PRN Reason: Sedation Last Admin: 09/12/18 19:14 Dose: 2 mg Documented by: Multi-Ingred Cream/Lotion/Oil/Oint (Artificial Tears Ophth Oint) 1 applic OU Q4HR PRN PRN Reason: Dry Eye(s) Ondansetron HCl (Zofran) 4 mg IV Q8H PRN PRN Reason: Nausea And Vomiting Simple Syrup (Simple Syrup) 15 ml FEEDTUBE PRN PRN PRN Reason: Hypoglycemia Simple Syrup (Simple Syrup) 30 ml FEEDTUBE PRN PRN PRN Reason: Hypoglycemia Sodium Bicarbonate (Sodium Bicarbonate) 325 mg FEEDTUBE PRN PRN PRN Reason: For Clogged Feeding Tube Sodium Chloride (Sodium Chloride Flush Syringe 10 Ml) 10 ml IV BID RONAL Last Admin: 09/13/18 08:49 Dose: Not Given Documented by: Sodium Chloride (Sodium Chloride Flush Syringe 10 Ml) 10 ml IV PRN PRN PRN Reason: LINE FLUSH Review of Systems ROS unobtainable: due to mental status Physical Examination Vital signs: Vital Signs Pulse Resp 75 11 L 09/12/18 14:41 09/12/18 14:41 General appearance: other (intubated, critically ill) Eyes: non-icteric ENT: oropharynx moist, other (tongue edema) Neck: supple Effort: normal Ascultation: Bilateral: other (coarse BS bilaterally) Cardiovascular: regular rate and rhythm (tachy, RR; no mrg) Gastrointestinal: normoactive bowel sounds, soft, non-tender, non-distended Integumentary: normal Extremities: no cyanosis, no edema, pink and warm other (poorly responsive, not moving extremities) other (unable to assess) Results - Laboratory Findings CBC and BMP: 09/13/18 04:19 09/13/18 04:19 ABG POC ABG pH 7.414 (7.35-7.45) 09/13/18 05:12 POC ABG pCO2 36.2 (35-45) 09/13/18 05:12 POC ABG pO2 99 (80-105) 09/13/18 05:12 POC ABG HCO3 23.2 09/13/18 05:12 POC ABG Total CO2 24 09/13/18 05:12 POC ABG O2 Sat 98 09/13/18 05:12 PT/INR, D-dimer PT 13.2 Sec. (12.2-14.9) 09/12/18 Unknown INR 0.95 (0.87-1.13) 09/12/18 Unknown Abnormal lab findings: Abnormal Labs 09/12/18 09/12/18 09/12/18 14:56 19:29 20:11 WBC Hct Seg Neutrophils % Seg Neuts % (Manual) Lymphocytes % (Manual) Seg Neutrophils # APTT POC ABG pO2 307 H Potassium Glucose POC Glucose 194 H Hemoglobin A1c Troponin T 0.045 H D HDL Cholesterol 39 L 09/12/18 09/12/18 09/12/18 20:11 21:17 22:26 WBC Hct Seg Neutrophils % Seg Neuts % (Manual) Lymphocytes % (Manual) Seg Neutrophils # APTT POC ABG pO2 Potassium Glucose POC Glucose 297 H 291 H Hemoglobin A1c 9.6 H Troponin T HDL Cholesterol 09/12/18 09/12/18 09/12/18 Unknown Unknown Unknown WBC Hct 44.0 H Seg Neutrophils % Seg Neuts % (Manual) 34.0 L Lymphocytes % (Manual) 59.0 H Seg Neutrophils # APTT 21.1 L POC ABG pO2 Potassium 3.5 L Glucose 213 H POC Glucose Hemoglobin A1c Troponin T HDL Cholesterol 09/13/18 09/13/18 09/13/18 04:19 04:19 05:42 WBC 14.3 H Hct Seg Neutrophils % 82.3 H Seg Neuts % (Manual) Lymphocytes % (Manual) Seg Neutrophils # 11.7 H APTT POC ABG pO2 Potassium Glucose 289 H POC Glucose 279 H Hemoglobin A1c Troponin T HDL Cholesterol 09/13/18 13:07 WBC Hct Seg Neutrophils % Seg Neuts % (Manual) Lymphocytes % (Manual) Seg Neutrophils # APTT POC ABG pO2 Potassium Glucose POC Glucose 199 H Hemoglobin A1c Troponin T HDL Cholesterol - Diagnostic Findings Chest x-ray: report reviewed, image reviewed (clear lungs) Assessment and Plan Imp: 1. Acute CVA 2. Acute respiratory failure, hypoxia 3. Morbid obesity 4. HTN Rec: 1. Cont. current ventilator settings; mentation precludes extubation 2. Minimize sedation 3. F/u Neurology recs 4. Insert DHT, start TFs 5. GI PPx; SCDs 6. Further plans pending clinical course Thanks for the consult. Will follow with you. Discussed w/ family at bedside.
--- NOTE | 2018-09-13 18:08 | Magnetic Resonance Report ---
FINAL REPORT EXAM: MR MRA/MRV HEAD WO CON HISTORY: stroke MR angiogram head [id number] PRIORS: None. FINDINGS: Normal appearance of the intracranial portion of the carotid arteries. The MCA and KAMILA distributions are unremarkable Distal vertebral arteries are intact. The basilar and [employer] circulation is within normal limits No evidence for major vascular occlusion or aneurysm IMPRESSION: Normal MRA head Please see today's MRI brain for additional findings
--- NOTE | 2018-09-13 20:31 | XRay Report ---
FINAL REPORT EXAM: XR ABDOMEN 1V AP HISTORY: Verify NG tube placement TECHNIQUE: Limited supine abdomen for tube placement PRIORS: None. FINDINGS: There is NG tube present. Distal end overlies the body of the stomach in satisfactory position. No ad ditional acute abnormality identified in the visualized portion the abdomen IMPRESSION: NG tube in satisfactory position
--- NOTE | 2018-09-13 20:46 | Consultation ---
History of Present Illness Consult date: 09/13/18 Requesting physician: KELSI HUGO Reason for Consult: seizure, right weakness Chief complaint: decreased responsiveness, weak on right, aphasia, seizure History of present illness: This 48-year-old left-handed -[place] female was found in the kitchen yesterday after a "boom" was heard and was foaming at the mouth and shaking on both sides which 911 was called. She was brought here and given TPA but had an allergic reaction with angioedema. Her sister states that her tongue did not swell but her lips swelled. She was noted to be weak on her right side and had no speech prior to coming here. She required intubation because of the allergic response. MRI shows multiple embolic appearing strokes especially left temporal and parietal with the largest in the left posterior frontal region reaching the parasagittal cortex and also both insulas, right posterior parietal and right temporal regions all reminiscent of watershed infarcts perhaps in part though suggestive of cardiac or aortic sources are discussed with the family. Echocardiogram has been done but not yet read. MRA showed occlusion of left MCA. There was some hemorrhagic transformation of the cortical edges of the left parietal stroke presumably from the TPA. Past History Past Medical History: other (HTN, DM, Hyperlipidemia). 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 denies: alcohol abuse, prescription drug abuse, IV drug use Family history: diabetes (mother), hypertension (mother), stroke (in twin sister and in her mother. No history of aneurysms.), other (No pulm issues reported. No family history of epilepsy.) Medications and Allergies Allergies Allergy/AdvReac Type Severity Reaction Status Date / Time alteplase AdvReac Angioedema Verified 09/12/18 17:10 Home Medications Medication Instructions Recorded Confirmed Last Taken Type AtorvaSTATin 20 mg PO DAILY 09/13/18 09/13/18 Unknown History Lisinopril/Hydrochlorothiazide 20 mg PO DAILY 09/13/18 09/13/18 Unknown History Metformin HCl [Metformin HCl ER] 1,000 mg PO BID 09/13/18 09/13/18 Unknown History Active Meds: Active Medications Acetaminophen (Tylenol) 650 mg PO Q4H PRN PRN Reason: Pain MILD(1-3)/Fever >100.5/WALLACE Lipase/Protease/Amylase (Pancreaze Dr 10,500 Unit) 1 each FEEDTUBE PRN PRN PRN Reason: For Clogged Feeding Tube Atorvastatin Calcium (Lipitor) 20 mg PO DAILY [facility] Last Admin: 09/13/18 14:11 Dose: Not Given Documented by: Famotidine (Pepcid) 20 mg IV BID [facility] Last Admin: 09/13/18 14:11 Dose: Not Given Documented by: Fentanyl (Sublimaze) 50 mcg IV Q10MIN PRN PRN Reason: ANALGESIA Hydromorphone HCl (Dilaudid) 0.5 mg IV Q3H PRN PRN Reason: Pain , Severe (7-10) Hydrophilic Ointment (Vaseline Lip Therapy) 1 applic TP Q2HR PRN PRN Reason: Dry Lips Midazolam HCl 100 mg/ Sodium (Chloride) 100 mls @ 2 mls/hr IV TITR RONAL; Protocol Last Titration: 09/13/18 09:21 Dose: 0 mg/hr, 0 mls/hr Documented by: Fentanyl Citrate (Fentanyl Drip Premix) 2,000 mcg in 100 mls @ 4.99 mls/hr IV TITR RONAL; Protocol Last Titration: 09/13/18 10:00 Dose: 0 mcg/kg/hr, 0 mls/hr Documented by: Sodium Chloride (Nacl 0.9% 1000 Ml) 1,000 mls @ 75 mls/hr IV DIRECT RONAL Levetiracetam 500 mg/ Sodium (Chloride) 105 mls @ 400 mls/hr IV Q6HR RONAL Midazolam HCl (Versed) 2 mg IV Q10MIN PRN PRN Reason: Sedation Last Admin: 09/12/18 19:14 Dose: 2 mg Documented by: Multi-Ingred Cream/Lotion/Oil/Oint (Artificial Tears Ophth Oint) 1 applic OU Q4HR PRN PRN Reason: Dry Eye(s) Ondansetron HCl (Zofran) 4 mg IV Q8H PRN PRN Reason: Nausea And Vomiting Simple Syrup (Simple Syrup) 15 ml FEEDTUBE PRN PRN PRN Reason: Hypoglycemia Simple Syrup (Simple Syrup) 30 ml FEEDTUBE PRN PRN PRN Reason: Hypoglycemia Sodium Bicarbonate (Sodium Bicarbonate) 325 mg FEEDTUBE PRN PRN PRN Reason: For Clogged Feeding Tube Sodium Chloride (Sodium Chloride Flush Syringe 10 Ml) 10 ml IV BID RONAL Last Admin: 09/13/18 10:00 Dose: 10 ml Documented by: Sodium Chloride (Sodium Chloride Flush Syringe 10 Ml) 10 ml IV PRN PRN PRN Reason: LINE FLUSH Review of Systems All systems: negative (occasional headaches, no dizziness no snoring or positives, not sleepy driving, memory intact. Some paresthesias in her feet) Physical Examination - Vital Signs Vital Signs: Vital Signs Pulse Resp 75 11 L 09/12/18 14:41 09/12/18 14:41 - Physical Exam Narrative exam: General appearance: well developed but borderline for being moderately obese (per BMI) late 40s -[place] female in [facility], intubated. HEENT: atraumatic, normocephalic, Jenn not enlarged or indurated. No bruits. Oropharynx obscured by endotracheal tube. Neck: supple, no bruits. Heart: no murmur or extra sounds but rapid rate. Extremities: no clubbing or cyanosis, no edema. 2+ dorsalis pedis pulses bilaterally. Neurologic Exam: Mental status: Arouses briefly to awake, but then seems to go back to sleep. Opens eyes to voice or pain. Does not obey commands OR obeys some commands (see below). No response to orientation questions. Cranial nerves: no blink to threat on the right, no papilledema, (+) SVPs, PERRL, (+) Doll's eyes partially but less excursion laterally to the right, decreased response to pinprick on the right, corneals present, no grimace to sup raorbital pressure, cannot assess Osman, gags are slightly positive, cannot assess shoulder shrug or tongue protrusion. Cerebellar: no tremor of left wrist reaching towards face, cannot attempt on the right, cannot cooperate for [id number]. Sensory: decreased reaction to pinprick on the right side. Motor Exam Upper Extremities: no response to pinprick or palmar rub on the right, flexes left arm spontaneously and tries to lift up towards her face and can push down with triceps about 4+ but not to command. Motor Exam Lower Extremities: no response to nailbed pressure or pinprick or supraorbital pressure on the right but moves left leg spontaneously. Reflexes: palmomental is negative, snout is negative, jaw jerk is negative. Triceps are trace, biceps are trace to 1 right and 1 left and brachioradialis are trace. Kalyan's is negative bilaterally. Knee jerks are 1+, and ankle jerks are trace right and 0 left without clonus. Toes are downgoing or upgoing right and downgoing or upgoing left to Babinski testing. - Assessment Assessment Interval: Baseline - Level of Consciousness 1a. Level of Consciousness: resp stimuli/obtunded - LOC Questions 1b. LOC Questions: aphasic - LOC Command 1c. LOC Commands: performs no tasks correctly - Best Gaze 2. Best Gaze: partial gaze palsy - Visual 3. Visual: no visual loss - Facial Palsy 4. Facial Palsy: partial paralysis - Motor Arm 5b. Motor Arm Right: no movement - Motor Leg 6a. Motor Leg Left: drift - Limb Ataxia 7. Limb Ataxia: absent - Sensory 8. Sensory: no response/quadraplegic - Best Language 9. Best Language: coma/unresponsive - Dysarthria 10. Dysarthria: mute/anarrthric - Extinction and Inattention 11. Extinction/Inattention: no abnormality Results - Laboratory Findings CBC and BMP: 09/13/18 04:19 09/13/18 04:19 Abnormal Lab Findings: Abnormal Labs 09/12/18 09/12/18 09/12/18 14:56 19:29 20:11 WBC Hct Seg Neutrophils % Seg Neuts % (Manual) Lymphocytes % (Manual) Seg Neutrophils # APTT POC ABG pO2 307 H Potassium Glucose POC Glucose 194 H Hemoglobin A1c Troponin T 0.045 H D HDL Cholesterol 39 L 09/12/18 09/12/18 09/12/18 20:11 21:17 22:26 WBC Hct Seg Neutrophils % Seg Neuts % (Manual) Lymphocytes % (Manual) Seg Neutrophils # APTT POC ABG pO2 Potassium Glucose POC Glucose 297 H 291 H Hemoglobin A1c 9.6 H Troponin T HDL Cholesterol 09/12/18 09/12/18 09/12/18 Unknown Unknown Unknown WBC Hct 44.0 H Seg Neutrophils % Seg Neuts % (Manual) 34.0 L Lymphocytes % (Manual) 59.0 H Seg Neutrophils # APTT 21.1 L POC ABG pO2 Potassium 3.5 L Glucose 213 H POC Glucose Hemoglobin A1c Troponin T HDL Cholesterol 09/13/18 09/13/18 09/13/18 04:19 04:19 05:42 WBC 14.3 H Hct Seg Neutrophils % 82.3 H Seg Neuts % (Manual) Lymphocytes % (Manual) Seg Neutrophils # 11.7 H APTT POC ABG pO2 Potassium Glucose 289 H POC Glucose 279 H Hemoglobin A1c Troponin T HDL Cholesterol 09/13/18 09/13/18 13:07 18:30 WBC Hct Seg Neutrophils % Seg Neuts % (Manual) Lymphocytes % (Manual) Seg Neutrophils # APTT POC ABG pO2 Potassium Glucose POC Glucose 199 H 189 H Hemoglobin A1c Troponin T HDL Cholesterol Assessment and Plan Impression: 1. Embolic strokes 2. Complex partial seizures 3. Hyperlipidemia Plan: 1. Echo reading is pending. If negative for embolic source may need transesophageal echocardiogram ideally with bubble contrast. 2. Will add 81 mg aspirin since 24 hours after the TPA. 3. Should have 30 day event monitoring for PAF as outpatient. 4. I increased atorvastatin to 40 mg from 20 mg since LDL high at 122. 45 min critical care time spent with this patient including review of 100s of MRI images with the family. Thank you for an interesting consultation on this unfortunate late 40s woman.
--- NOTE | 2018-09-13 22:21 | Electroencephalogram Report ---
Electroencephalogram EEG Date of exam: 09/13/18 History: seizure with right hemiparesis, aphasia Description: EEG preliminary findings: this 23 channel digital electroencephalogram (including 1 EKG channel) shows no alpha activity. No photic stimulation was done. Left frontocentral and frontotemporal slowing are seen but no epileptiform activity. There is considerable EMG artifact at times. Interpretation: EEG preliminary reading: Moderately abnormal EEG due to left-sided slowing for which correlation with imaging is advised. This EEG does not exclude epilepsy of partial onset. Up to 4 EEGs over several months may be needed to capture interictal epileptiform activity.
[2018-09-13] MEDS: KEPPRA 500 MG in NACL 0.9% 100 ML IV SCH (23:35)
[2018-09-13] MEDS: BABY ASPIRIN FEEDTUBE SCH (23:38)
--- NOTE | 2018-09-14 03:04 | XRay Report ---
FINAL REPORT EXAM: XR CHEST 1V AP HISTORY: follow up respiratory failure TECHNIQUE: A portable semi-upright view the chest was obtained and compared to the study of 09/13/19 19. FINDINGS: The heart size and vascularity appear normal. There are no localized infiltrates or effusions. The ti p of the ET tube is 3 cm above the ayla. The NG tube is in good position in the stomach. The skelet al structures do not show any acute changes. IMPRESSION: No evidence of congestion or infiltrates at this time. Satisfactory position of the ET tube and NG tube.
[2018-09-14] MEDS: KEPPRA 500 MG in NACL 0.9% 100 ML IV SCH ×3 (06:15→18:00)
--- NOTE | 2018-09-14 08:20 | XRay Report ---
FINAL REPORT EXAM: XR CHEST 1V AP HISTORY: tube repositioning TECHNIQUE: AP portable view of the chest PRIORS: CXR 09/12/2018 FINDINGS: Lines, tubes, and devices: Endotracheal tube has been pulled back now terminating 5.8 cm above the c darrius. Lungs and pleura: Trachea is normal in position. Lungs are clear of infiltrate, pleural effusion, vas cular congestion, or pneumothorax. No change. Cardiomediastinal silhouette: Cardiac and mediastinal silhouettes are unremarkable. Other: Bony structures are intact. IMPRESSION: No acute cardiopulmonary process seen. No change. Satisfactory ET tube placement.
[2018-09-14] MEDS: NACL 0.9% 1000 ML 1,000 ML IV SCH (09:00)
[2018-09-14 09:07] LABS: Hematocrit 38.7 % (30.3-42.9); Hemoglobin 12.6 gm/dl (10.1-14.3); Mean Corpuscular HGB Conc 33 % (30-34); Mean Corpuscular Volume 91 fl (79-97); Platelet Count 277 K/mm3 (140-440); Red Blood Count 4.27 M/mm3 (3.65-5.03); Red Cell Distribution Width 15.1 % (13.2-15.2)
[2018-09-14 09:17] LABS: BUN/Creatinine Ratio 13; Blood Urea Nitrogen 9 mg/dL (7-17); Hemolysis Index 14
[2018-09-14] MEDS: PEPCID IV SCH (09:49)
[2018-09-14] MEDS: BABY ASPIRIN FEEDTUBE SCH (09:52)
[2018-09-14] MEDS: HumaLOG SUB-Q SCH ×3 (09:53→19:49)
--- NOTE | 2018-09-14 12:58 | Progress Note ---
Assessment and Plan Assessment and plan: Acute hypoxemic respiratory failure. Continue mechanical ventilation per pulmonary. Acute ischemic stroke, bilateral multiple infarcts with subarachnoid hemorrhage s/p tPA given in ED MRI shows multiple embolic appearing strokes especially left temporal and parietal with the largest in the left posterior frontal region reaching the parasagittal cortex and also both insulas, right posterior parietal and right temporal regions all reminiscent of watershed infarcts perhaps in part though suggestive of cardiac or aortic sources. MRA showed occlusion of left MCA. There was some hemorrhagic transformation of the cortical edges of the left parietal stroke presumably from the TPA. Neurology following. Seizures On Keppra Acute resp failure Intubated Pulm following Hypertension Monitor BP Full code status History Interval history: This 48-year-old left-handed -Wel[place] female was found in the kitchen yesterday after a "boom" was heard and was foaming at the mouth and shaking on both sides which 911 was called. She was brought here and given TPA but had an allergic reaction with angioedema. Her sister states that her tongue did not swell but her lips swelled. She was noted to be weak on her right side and had no speech prior to coming here. She required intubation because of the allergic response. MRI shows multiple embolic appearing strokes especially left temporal and parietal with the largest in the left posterior frontal region reaching the parasagittal cortex and also both insulas, right posterior parietal and right temporal regions all reminiscent of watershed infarcts perhaps in part though suggestive of cardiac or aortic sources are discussed with the family. Echocardiogram has been done but not yet read. MRA showed occlusion of left MCA. There was some hemorrhagic transformation of the cortical edges of the l eft parietal stroke presumably from the TPA. Patient currently remains intubated in the ICU. Hospitalist Physical - Constitutional Vitals: Temp Pulse Resp BP Pulse Ox 99.5 F 159 H 17 150/87 100 09/14/18 08:00 09/14/18 11:27 09/14/18 11:27 09/14/18 10:51 09/14/18 11:27 General appearance: Present: no acute distress, well-nourished, other (orally intubated on mechanical ventilation.) - EENT Eyes: Present: PERRL, EOM intact ENT: hearing intact, clear oral mucosa, dentition normal - Neck Neck: Present: supple, normal ROM - Respiratory Respiratory effort: normal Respiratory: bilateral: CTA - Cardiovascular Rhythm: regular Heart Sounds: Present: S1 & S2. Absent: gallop, rub - Extremities Extremities: no ischemia, No edema, Full ROM - Abdominal General gastrointestinal: soft, non-tender, non-distended, normal bowel sounds - Integumentary Integumentary: Present: clear, warm, dry - Neurologic Neurologic: CNII-XII intact, moves all extremities Results - Labs CBC & Chem 7: 09/14/18 07:17 09/14/18 07:17 Labs: Laboratory Last Values WBC 11.8 K/mm3 (4.5-11.0) H 09/14/18 07:17 RBC 4.27 M/mm3 (3.65-5.03) 09/14/18 07:17 Hgb 12.6 gm/dl (10.1-14.3) 09/14/18 07:17 Hct 38.7 % (30.3-42.9) 09/14/18 07:17 MCV 91 fl (79-97) 09/14/18 07:17 MCH 30 pg (28-32) 09/14/18 07:17 MCHC 33 % (30-34) 09/14/18 07:17 RDW 15.1 % (13.2-15.2) 09/14/18 07:17 Plt Count 277 K/mm3 (140-440) 09/14/18 07:17 Lymph % (Auto) 15.9 % (13.4-35.0) 09/13/18 04:19 [place] % (Auto) 1.6 % (0.0-7.3) 09/13/18 04:19 Eos % (Auto) 0.0 % (0.0-4.3) 09/13/18 04:19 Baso % (Auto) 0.2 % (0.0-1.8) 09/13/18 04:19 Lymph # 2.3 K/mm3 (1.2-5.4) 09/13/18 04:19 [place] # 0.2 K/mm3 (0.0-0.8) 09/13/18 04:19 Eos # 0.0 K/mm3 (0.0-0.4) 09/13/18 04:19 Baso # 0.0 K/mm3 (0.0-0.1) 09/13/18 04:19 Add Manual Diff Complete 09/12/18 Unknown Total Counted 100 09/12/18 Unknown Seg Neutrophils % 82.3 % (40.0-70.0) H 09/13/18 04:19 Seg Neuts % (Manual) 34.0 % (40.0-70.0) L 09/12/18 Unknown Band Neutrophils % 0 % 09/12/18 Unknown Lymphocytes % (Manual) 59.0 % (13.4-35.0) H 09/12/18 Unknown Reactive Lymphs % (Man) 0 % 09/12/18 Unknown Monocytes % (Manual) 7.0 % (0.0-7.3) 09/12/18 Unknown Eosinophils % (Manual) 0 % (0.0-4.3) 09/12/18 Unknown Basophils % (Manual) 0 % (0.0-1.8) 09/12/18 Unknown Metamyelocytes % 0 % 09/12/18 Unknown Myelocytes % 0 % 09/12/18 Unknown Promyelocytes % 0 % 09/12/18 Unknown Blast Cells % 0 % 09/12/18 Unknown Nucleated RBC % Not Reportable 09/12/18 Unknown Seg Neutrophils # 11.7 K/mm3 (1.8-7.7) H 09/13/18 04:19 Seg Neutrophils # Man 3.1 K/mm3 (1.8-7.7) 09/12/18 Unknown Band Neutrophils # 0.0 K/mm3 09/12/18 Unknown Lymphocytes # (Manual) 5.4 K/mm3 (1.2-5.4) 09/12/18 Unknown Abs React Lymphs (Man) 0.0 K/mm3 09/12/18 Unknown Monocytes # (Manual) 0.6 K/mm3 (0.0-0.8) 09/12/18 Unknown Eosinophils # (Manual) 0.0 K/mm3 (0.0-0.4) 09/12/18 Unknown Basophils # (Manual) 0.0 K/mm3 (0.0-0.1) 09/12/18 Unknown Metamyelocytes # 0.0 K/mm3 09/12/18 Unknown Myelocytes # 0.0 K/mm3 09/12/18 Unknown Promyelocytes # 0.0 K/mm3 09/12/18 Unknown Blast Cells # 0.0 K/mm3 09/12/18 Unknown WBC Morphology Not Reportable 09/12/18 Unknown Hypersegmented Neuts Not Reportable 09/12/18 Unknown Hyposegmented Neuts Not Reportable 09/12/18 Unknown Hypogranular Neuts Not Reportable 09/12/18 Unknown Smudge Cells Not Reportable 09/12/18 Unknown Toxic Granulation Not Reportable 09/12/18 Unknown Toxic Vacuolation Not Reportable 09/12/18 Unknown Dohle Bodies Not Reportable 09/12/18 Unknown Pelger-Huet Anomaly Not Reportable 09/12/18 Unknown Alf Rods Not Reportable 09/12/18 Unknown Platelet Estimate Appe 09/12/18 Unknown Clumped Platelets Not Reportable 09/12/18 Unknown Plt Clumps, EDTA Not Reportable 09/12/18 Unknown Large Platelets Not Reportable 09/12/18 Unknown Giant Platelets Not Reportable 09/12/18 Unknown Platelet Satelliting Not Reportable 09/12/18 Unknown Plt Morphology Comment Not Reportable 09/12/18 Unknown RBC Morphology Normal 09/12/18 Unknown Dimorphic RBCs Not Reportable 09/12/18 Unknown Polychromasia Not Reportable 09/12/18 Unknown Hypochromasia Not Reportable 09/12/18 Unknown Poikilocytosis Not Reportable 09/12/18 Unknown Anisocytosis Not Reportable 09/12/18 Unknown Microcytosis Not Reportable 09/12/18 Unknown Macrocytosis Not Reportable 09/12/18 Unknown Spherocytes Not Reportable 09/12/18 Unknown Pappenheimer Bodies Not Reportable 09/12/18 Unknown Sickle Cells Not Reportable 09/12/18 Unknown Target Cells Not Reportable 09/12/18 Unknown Tear Drop Cells Not Reportable 09/12/18 Unknown Ovalocytes Not Reportable 09/12/18 Unknown Helmet Cells Not Reportable 09/12/18 Unknown [place] Bodies Not Reportable 09/12/18 Unknown [place] Rings Not Reportable 09/12/18 Unknown Loly Cells Not Reportable 09/12/18 Unknown Bite Cells Not Reportable 09/12/18 Unknown Crenated Cell Not Reportable 09/12/18 Unknown Elliptocytes Not Reportable 09/12/18 Unknown Acanthocytes (Spur) Not Reportable 09/12/18 Unknown Rouleaux Not Reportable 09/12/18 Unknown Hemoglobin C Crystals Not Reportable 09/12/18 Unknown Schistocytes Not Reportable 09/12/18 Unknown Malaria parasites Not Reportable 09/12/18 Unknown Emery Bodies Not Reportable 09/12/18 Unknown Hem Pathologist Commnt No 09/12/18 Unknown PT 13.2 Sec. (12.2-14.9) 09/12/18 Unknown INR 0.95 (0.87-1.13) 09/12/18 Unknown APTT 21.1 Sec. (24.2-36.6) L 09/12/18 Unknown Thrombin Time 16.3 Sec. (15.1-19.6) 09/12/18 Unknown POC ABG pH 7.432 (7.35-7.45) 09/14/18 04:20 POC ABG pCO2 38.0 (35-45) 09/14/18 04:20 POC ABG pO2 103 (80-105) 09/14/18 04:20 POC ABG HCO3 25.3 09/14/18 04:20 POC ABG Total CO2 26 09/14/18 04:20 POC ABG O2 Sat 98 09/14/18 04:20 POC ABG Base Excess 1 09/14/18 04:20 FiO2 30 % 09/14/18 04:20 Sodium 140 mmol/L (137-145) 09/14/18 07:17 Potassium 4.0 mmol/L (3.6-5.0) 09/14/18 07:17 Chloride 100.0 mmol/L (98-107) 09/14/18 07:17 Carbon Dioxide 26 mmol/L (22-30) 09/14/18 07:17 Anion Gap 18 mmol/L 09/14/18 07:17 BUN 9 mg/dL (7-17) 09/14/18 07:17 Creatinine 0.7 mg/dL (0.7-1.2) 09/14/18 07:17 Estimated GFR > 60 ml/min 09/14/18 07:17 BUN/Creatinine Ratio 13 % 09/14/18 07:17 Glucose 215 mg/dL (65-100) H 09/14/18 07:17 POC Glucose 216 (70-105) H 09/14/18 06:19 Hemoglobin A1c 9.6 % (4-6) H 09/12/18 20:11 Calcium 9.0 mg/dL (8.4-10.2) 09/14/18 07:17 Total Bilirubin 0.30 mg/dL (0.1-1.2) 09/13/18 04:19 AST 21 units/L (5-40) 09/13/18 04:19 ALT 20 units/L (7-56) 09/13/18 04:19 Alkaline Phosphatase 83 units/L (35-129) 09/13/18 04:19 Total Creatine Kinase 32 units/L (30-135) 09/12/18 Unknown CK-MB (CK-2) < 1.0 ng/mL (0.0-4.0) 09/12/18 Unknown CK-MB (CK-2) Rel Index 3.1 (0-4) 09/12/18 Unknown Troponin T < 0.010 ng/mL (0.00-0.029) 09/12/18 Unknown Total Protein 7.0 g/dL (6.3-8.2) 09/13/18 04:19 Albumin 4.0 g/dL (3.9-5) 09/13/18 04:19 Albumin/Globulin Ratio 1.3 % 09/13/18 04:19 Triglycerides 83 mg/dL (2-149) 09/12/18 20:11 Cholesterol 166 mg/dL (50-199) 09/12/18 20:11 LDL Cholesterol Direct 122 mg/dL (50-130) 09/12/18 20:11 HDL Cholesterol 39 mg/dL (40-59) L 09/12/18 20:11 Cholesterol/HDL Ratio 4.25 % 09/12/18 20:11 Plasma/Serum Alcohol < 0.01 % (0-0.07) 09/12/18 Unknown Blood Type O POSITIVE 09/12/18 14:25 Antibody Screen Negative 09/12/18 14:25 Nutrition/Malnutrition Assess - Dietary Evaluation Nutrition/Malnutrition Findings: Nutrition Notes Start: 09/13/18 13:25 Freq: Status: Active Protocol: Document 09/13/18 15:26 EB (Rec: 09/13/18 16:23 [id number]) Co-Sign 09/13/18 15:26 RM Nutrition Notes Need for Assessment generated from: MD Order Initial or Follow up Assessment Current Diagnosis Diabetes Hypertension Current Diet NPO Labs/Tests B A1C: 9.6 Pertinent Medications Reviewed Height 5 ft 4 in Weight 106.6 kg [place] Body Weight (kg) 54.54 BMI 40.3 Weight Status Obese Subjective/Other Information Consulted for TF order, nutrtional intake eval, and need for ONS. Pt intubated and sleeping at time of visit. Pt family in room and reports that pt has had DM for several years. This was not indicated in history and physical, but elevated BG and A1C reflect this accurately. Per nurse, NGT will not be placed until tomorrow d/t elevated risk of bleeding as evidenced by tPA levels. Burn Absent Trauma Absent GI Symptoms None Current % PO Negligible Minimum of two criteria No #1 Nutrition Diagnosis Inadequate oral intake Etiology pt intubated As Evidenced by Signs and Symptoms NPO status Is patient on ventilator? No Is Patient Ambulatory and/or Out of Bed No REE-([facility]-confined to bed) 2013.620 Kcal/Kg value to use for calculation 14 Approximate Energy Requirements Using 1492 kcal/Kg Calculation Used for Recommendations Kcal/kg Additional Notes Pro: 1.2-2 g/kg IBW of 54 kg ( 65-108 g/day) Fluid: 1 mL/kcal Nutrition Intervention Change Diet Order: Initiate TF Nutrition Support: Vital 1.2 at 50 mL/hr Flush 100 mL q 4 hr Kcal 1,440 Protein (gm) 90 Carbohydrates (gm) 133 Fluid (mL) 973 Goal #1 NG placement and TF initiation Goal #2 TF tolerance Goal #3 Meet at least 80% sita and pro needs via TF Anticipated Discharge Needs: unable to determine at this time Follow-Up By: 09/14/18 Additional Comments F/u: NG placement and TF initiation
[2018-09-14] MEDS: SODIUM CHLORIDE FLUSH SYRINGE 10 ML IV SCH (14:30)
--- NOTE | 2018-09-14 14:58 | Progress Note ---
Assessment and Plan Imp: 1. Acute CVA 2. Acute respiratory failure, hypoxia 3. Morbid obesity 4. HTN 5. Seizures Rec: 1. Cont. current ventilator settings with PSV trials daily; mentation precludes extubation; may ultimately need trach/PEG & LTAC but monitor for neurological improvement next few days 2. Minimize sedation -> d/c Fentanyl and Versed drips 3. F/u Neurology recs re: need for LITO 4. NGT in place, start TFs 5. GI PPx; SCDs 6. Isolated fever likely central in origin; monitor 7. Keppra per neurology 8. Further plans pending clinical course CCt 31 minutes; Discussed w/ family at bedside. Subjective Date of service: 09/14/18 Principal diagnosis: CVA Interval history: No events. Not opening eyes. Moves L arm and leg spontaneously. Tolerates PSV. Active Medications Acetaminophen (Tylenol) 650 mg PO Q4H PRN PRN Reason: Pain MILD(1-3)/Fever >100.5/[place]ACE Lipase/Protease/Amylase ([address] 10,500 Unit) 1 each FEEDTUBE PRN PRN PRN Reason: For Clogged Feeding Tube Aspirin (Baby Aspirin) 81 mg FEEDTUBE QDAY [facility] Last Admin: 09/14/18 09:52 Dose: 81 mg Documented by: Atorvastatin Calcium (Lipitor) 40 mg PO QHS [facility] Last Admin: 09/13/18 23:37 Dose: 40 mg Documented by: Famotidine (Pepcid) 20 mg IV BID [facility] Last Admin: 09/14/18 09:49 Dose: 20 mg Documented by: Fentanyl (Sublimaze) 50 mcg IV Q10MIN PRN PRN Reason: ANALGESIA Hydromorphone HCl (Dilaudid) 0.5 mg IV Q3H PRN PRN Reason: Pain , Severe (7-10) Hydrophilic Ointment (Vaseline Lip Therapy) 1 applic TP Q2HR PRN PRN Reason: Dry Lips Sodium Chloride (Nacl 0.9% 1000 Ml) 1,000 mls @ 75 mls/hr IV DIRECT [facility] Last Admin: 09/14/18 09:00 Dose: 75 mls/hr Documented by: Levetiracetam 500 mg/ Sodium (Chloride) 105 mls @ 400 mls/hr IV Q6HR [facility] Last Admin: 09/14/18 13:49 Dose: 400 mls/hr Documented by: Insulin Human Lispro (Humalog) 0 unit SUB-Q Q6HR [facility]; Protocol Last Admin: 09/14/18 13:00 Dose: Not Given Documented by: Multi-Ingred Cream/Lotion/Oil/Oint (Artificial Tears Ophth Oint) 1 applic OU Q4HR PRN PRN Reason: Dry Eye(s) Ondansetron HCl (Zofran) 4 mg IV Q8H PRN PRN Reason: Nausea And Vomiting Simple Syrup (Simple Syrup) 15 ml FEEDTUBE PRN PRN PRN Reason: Hypoglycemia Simple Syrup (Simple Syrup) 30 ml FEEDTUBE PRN PRN PRN Reason: Hypoglycemia Sodium Bicarbonate (Sodium Bicarbonate) 325 mg FEEDTUBE PRN PRN PRN Reason: For Clogged Feeding Tube Sodium Chloride (Sodium Chloride Flush Syringe 10 Ml) 10 ml IV BID [facility] Last Admin: 09/14/18 14:30 Dose: Not Given Documented by: Sodium Chloride (Sodium Chloride Flush Syringe 10 Ml) 10 ml IV PRN PRN PRN Reason: LINE FLUSH Objective Vital Signs - 12hr 09/14/18 09/14/18 09/14/18 03:01 03:10 03:21 Temperature Pulse Rate 81 80 74 Pulse Rate [ Right Radial] Respiratory 20 20 20 Rate Blood Pressure 117/65 117/65 117/65 O2 Sat by Pulse 100 100 100 Oximetry 09/14/18 09/14/18 09/14/18 03:30 03:41 03:51 Temperature Pulse Rate 91 H 76 89 Pulse Rate [ Right Radial] Respiratory 15 20 21 Rate Blood Pressure 117/65 125/66 125/66 O2 Sat by Pulse 100 100 99 Oximetry 09/14/18 09/14/18 09/14/18 04:00 04:01 04:11 Temperature 99.3 F Pulse Rate 86 88 Pulse Rate [ 87 Right Radial] Respiratory 20 20 20 Rate Blood Pressure 122/69 122/69 O2 Sat by Pulse 100 98 100 Oximetry 09/14/18 09/14/18 09/14/18 04:19 04:21 04:30 Temperature Pulse Rate 88 86 88 Pulse Rate [ Right Radial] Respiratory 20 20 Rate Blood Pressure 122/69 120/67 O2 Sat by Pulse 98 97 99 Oximetry 09/14/18 09/14/18 09/14/18 04:40 04:51 05:00 Temperature Pulse Rate 80 80 93 H Pulse Rate [ Right Radial] Respiratory 20 20 20 Rate Blood Pressure 120/67 120/67 128/71 O2 Sat by Pulse 100 100 96 Oximetry 09/14/18 09/14/18 09/14/18 05:11 05:21 05:31 Temperature Pulse Rate 101 H 124 H 110 H Pulse Rate [ Right Radial] Respiratory 20 22 23 Rate Blood Pressure 128/71 128/71 128/71 O2 Sat by Pulse 99 100 98 Oximetry 09/14/18 09/14/18 09/14/18 05:41 05:51 06:00 Temperature Pulse Rate 99 H 92 H 83 Pulse Rate [ Right Radial] Respiratory 22 20 20 Rate Blood Pressure 128/71 158/84 137/77 O2 Sat by Pulse 95 96 96 Oximetry 09/14/18 09/14/18 09/14/18 06:11 06:21 06:30 Temperature Pulse Rate 87 86 80 Pulse Rate [ Right Radial] Respiratory 20 20 20 Rate Blood Pressure 137/77 137/77 155/82 O2 Sat by Pulse 98 99 98 Oximetry 09/14/18 09/14/18 09/14/18 06:41 06:51 07:01 Temperature Pulse Rate 84 76 74 Pulse Rate [ Right Radial] Respiratory 20 20 20 Rate Blood Pressure 155/82 155/82 162/80 O2 Sat by Pulse 96 96 92 Oximetry 09/14/18 09/14/18 09/14/18 07:10 07:21 07:31 Temperature Pulse Rate 89 101 H 91 H Pulse Rate [ Right Radial] Respiratory 20 20 20 Rate Blood Pressure 162/80 162/80 162/80 O2 Sat by Pulse 97 93 100 Oximetry 09/14/18 09/14/18 09/14/18 07:41 07:51 07:56 Temperature Pulse Rate 76 83 84 Pulse Rate [ Right Radial] Respiratory 19 20 Rate Blood Pressure 162/80 162/80 O2 Sat by Pulse 98 100 Oximetry 09/14/18 09/14/18 09/14/18 08:00 08:01 08:10 Temperature 99.5 F Pulse Rate 87 93 H Pulse Rate [ Right Radial] Respiratory 17 16 Rate Blood Pressure 162/80 O2 Sat by Pulse 97 97 100 Oximetry 09/14/18 09/14/18 09/14/18 08:11 08:21 08:30 Temperature Pulse Rate 88 94 H 88 Pulse Rate [ Right Radial] Respiratory 17 17 17 Rate Blood Pressure 162/80 151/73 143/79 O2 Sat by Pulse 100 100 100 Oximetry 09/14/18 09/14/18 09/14/18 08:41 08:51 09:00 Temperature Pulse Rate 97 H 92 H 96 H Pulse Rate [ Right Radial] Respiratory 18 18 19 Rate Blood Pressure 143/79 143/79 132/82 O2 Sat by Pulse 100 100 100 Oximetry 09/14/18 09/14/18 09/14/18 09:11 09:20 09:31 Temperature Pulse Rate 81 93 H 112 H Pulse Rate [ Right Radial] Respiratory 16 17 18 Rate Blood Pressure 132/82 132/82 132/82 O2 Sat by Pulse 100 100 100 Oximetry 09/14/18 09/14/18 09/14/18 09:41 09:50 10:00 Temperature Pulse Rate 95 H 87 92 H Pulse Rate [ Right Radial] Respiratory 16 17 17 Rate Blood Pressure 132/82 132/82 149/84 O2 Sat by Pulse 100 100 100 Oximetry 09/14/18 09/14/18 09/14/18 10:11 10:21 10:30 Temperature Pulse Rate 88 87 95 H Pulse Rate [ Right Radial] Respiratory 18 17 19 Rate Blood Pressure 149/84 149/84 150/87 O2 Sat by Pulse 99 100 100 Oximetry 09/14/18 09/14/18 09/14/18 10:41 10:51 11:00 Temperature Pulse Rate 86 88 95 H Pulse Rate [ Right Radial] Respiratory 17 17 18 Rate Blood Pressure 150/87 150/87 159/84 O2 Sat by Pulse 100 100 100 Oximetry 09/14/18 09/14/18 09/14/18 11:11 11:21 11:27 Temperature Pulse Rate 86 93 H 82 Pulse Rate [ Right Radial] Respiratory 17 15 17 Rate Blood Pressure 159/84 159/84 O2 Sat by Pulse 100 100 100 Oximetry 09/14/18 09/14/18 09/14/18 11:30 11:41 11:51 Temperature Pulse Rate 95 H 88 88 Pulse Rate [ Right Radial] Respiratory 17 16 17 Rate Blood Pressure 142/82 142/82 142/82 O2 Sat by Pulse 100 100 100 Oximetry 09/14/18 09/14/18 09/14/18 12:00 12:11 12:21 Temperature 99 F Pulse Rate 93 H 98 H 84 Pulse Rate [ Right Radial] Respiratory 19 19 18 Rate Blood Pressure 145/83 145/83 145/83 O2 Sat by Pulse 99 100 100 Oximetry 09/14/18 09/14/18 09/14/18 12:30 12:41 12:51 Temperature Pulse Rate 92 H 95 H 93 H Pulse Rate [ Right Radial] Respiratory 18 18 20 Rate Blood Pressure 148/80 148/80 148/80 O2 Sat by Pulse 100 100 100 Oximetry 09/14/18 09/14/18 09/14/18 13:00 13:11 13:21 Temperature Pulse Rate 100 H 95 H 100 H Pulse Rate [ Right Radial] Respiratory 20 17 16 Rate Blood Pressure 145/82 145/82 145/82 O2 Sat by Pulse 99 100 100 Oximetry 09/14/18 09/14/18 09/14/18 13:30 13:41 13:51 Temperature Pulse Rate 104 H 86 91 H Pulse Rate [ Right Radial] Respiratory 20 17 17 Rate Blood Pressure 138/90 138/90 138/90 O2 Sat by Pulse 99 99 100 Oximetry 09/14/18 09/14/18 14:00 14:49 Temperature Pulse Rate 88 85 Pulse Rate [ Right Radial] Respiratory 18 17 Rate Blood Pressure 145/77 137/80 O2 Sat by Pulse 99 100 Oximetry Constitutional: other (intubated, critically ill) Eyes: non-icteric ENT: oropharynx moist Neck: supple Effort: normal Ascultation: Bilateral: other (coarse BS bilaterally) Cardiovascular: regular rate and rhythm (no mrg) Gastrointestinal: normoactive bowel sounds, soft, non-tender, non-distended Integumentary: normal Extremities: no cyanosis, no edema, pink and warm Neurologic: other (poorly responsive, moves L side, does not follow commands or open eyes) Psychiatric: other (unable to assess) CBC and BMP: 09/14/18 07:17 09/14/18 07:17 ABG, PT/INR, D-dimer: ABG POC ABG pH 7.432 (7.35-7.45) 09/14/18 04:20 POC ABG pCO2 38.0 (35-45) 09/14/18 04:20 POC ABG pO2 103 (80-105) 09/14/18 04:20 POC ABG HCO3 25.3 09/14/18 04:20 POC ABG Total CO2 26 09/14/18 04:20 POC ABG O2 Sat 98 09/14/18 04:20 PT/INR, D-dimer PT 13.2 Sec. (12.2-14.9) 09/12/18 Unknown INR 0.95 (0.87-1.13) 09/12/18 Unknown Abnormal lab findings: Abnormal Labs 09/12/18 09/12/18 09/12/18 14:56 19:29 20:11 WBC Hct Seg Neutrophils % Seg Neuts % (Manual) Lymphocytes % (Manual) Seg Neutrophils # APTT POC ABG pO2 307 H Potassium Glucose POC Glucose 194 H Hemoglobin A1c Troponin T 0.045 H D HDL Cholesterol 39 L 09/12/18 09/12/18 09/12/18 20:11 21:17 22:26 WBC Hct Seg Neutrophils % Seg Neuts % (Manual) Lymphocytes % (Manual) Seg Neutrophils # APTT POC ABG pO2 Potassium Glucose POC Glucose 297 H 291 H Hemoglobin A1c 9.6 H Troponin T HDL Cholesterol 09/12/18 09/12/18 09/12/18 Unknown Unknown Unknown WBC Hct 44.0 H Seg Neutrophils % Seg Neuts % (Manual) 34.0 L Lymphocytes % (Manual) 59.0 H Seg Neutrophils # APTT 21.1 L POC ABG pO2 Potassium 3.5 L Glucose 213 H POC Glucose Hemoglobin A1c Troponin T HDL Cholesterol 09/13/18 09/13/18 09/13/18 04:19 04:19 05:42 WBC 14.3 H Hct Seg Neutrophils % 82.3 H Seg Neuts % (Manual) Lymphocytes % (Manual) Seg Neutrophils # 11.7 H APTT POC ABG pO2 Potassium Glucose 289 H POC Glucose 279 H Hemoglobin A1c Troponin T HDL Cholesterol 09/13/18 09/13/18 09/13/18 13:07 18:30 22:58 WBC Hct Seg Neutrophils % Seg Neuts % (Manual) Lymphocytes % (Manual) Seg Neutrophils # APTT POC ABG pO2 Potassium Glucose POC Glucose 199 H 189 H 214 H Hemoglobin A1c Troponin T HDL Cholesterol 09/14/18 09/14/18 09/14/18 06:19 07:17 07:17 WBC 11.8 H Hct Seg Neutrophils % Seg Neuts % (Manual) Lymphocytes % (Manual) Seg Neutrophils # APTT POC ABG pO2 Potassium Glucose 215 H POC Glucose 216 H Hemoglobin A1c Troponin T HDL Cholesterol Chest x-ray: report reviewed, image reviewed (clear lungs)
--- NOTE | 2018-09-14 16:42 | XRay Report ---
FINAL REPORT EXAM: XR CHEST 1V AP HISTORY: ETT placement TECHNIQUE: AP portable view of the chest PRIORS: None. FINDINGS: Lines, tubes, and devices: Endotracheal tube terminates 1.5 cm above the ayla. Lungs and pleura: Trachea is normal in position. Lungs are clear of infiltrate, pleural effusion, vas cular congestion, or pneumothorax. No change. Cardiomediastinal silhouette: There is prominence of the main pulmonary artery segment. Cardiac and m ediastinal silhouettes are otherwise unremarkable. Other: Bony structures are intact. IMPRESSION: No acute cardiopulmonary process seen. ET tube terminates 1.5 cm above the ayla. Prominence of the main pulmonary artery segment is noted.
[2018-09-14] MEDS ORDERED: KEPPRA PO SCH (22:00)
[2018-09-15] MEDS: NACL 0.9% 1000 ML 1,000 ML IV SCH (04:00)
[2018-09-15 05:52] LABS: Basophils % (Auto) 0.4 % (0.0-1.8); Eosinophils % (Auto) 0.3 % (0.0-4.3); Hematocrit 37.2 % (30.3-42.9); Hemoglobin 12.1 gm/dl (10.1-14.3); Lymphocytes # (Auto) 2.2 K/mm3 (1.2-5.4); Mean Corpuscular HGB Conc 33 % (30-34); Mean Corpuscular Volume 92 fl (79-97); Monocytes # (Auto) 0.6 K/mm3 (0.0-0.8); Monocytes % (Auto) 5.7 % (0.0-7.3); Platelet Count 270 K/mm3 (140-440); Red Blood Count 4.06 M/mm3 (3.65-5.03); Red Cell Distribution Width 14.9 % (13.2-15.2)
[2018-09-15] MEDS: KEPPRA 500 MG in NACL 0.9% 100 ML IV SCH ×5 (06:00→20:05)
[2018-09-15 06:06] LABS: BUN/Creatinine Ratio 14; Blood Urea Nitrogen 10 mg/dL (7-17); Calcium 8.4 mg/dL (8.4-10.2); Hemolysis Index 60
--- NOTE | 2018-09-15 08:43 | XRay Report ---
FINAL REPORT EXAM: XR CHEST 1V AP HISTORY: follow up respiratory failure TECHNIQUE: AP portable view(s) of the chest obtained. PRIORS: 09/14/2018 FINDINGS: Endotracheal tube terminates around 5 cm from the ayla. Enteric tube courses below the diaphragm an d off of the inferior field of view. No mediastinal shift. Cardiac silhouette is not enlarged. No pne umothorax, effusion, or focal pulmonary opacity identified. No acute skeletal findings. IMPRESSION: Satisfactory appearance of the patient's support apparatus without pneumothorax or significant change compared to 09/14/2018
[2018-09-15] MEDS: PEPCID IV SCH (10:11)
[2018-09-15] MEDS: BABY ASPIRIN FEEDTUBE SCH (10:11)
--- NOTE | 2018-09-15 10:39 | Progress Note ---
Assessment and Plan Imp: 1. Acute CVA 2. Acute respiratory failure, hypoxia 3. Morbid obesity 4. HTN 5. Seizures Rec: 1. Cont. current ventilator settings with PSV trials daily; mentation precludes extubation; may ultimately need trach/PEG & LTAC but monitor for neurological improvement next few days 2. Minimize sedation -> d/c Fentanyl and Versed drips & Dilaudid 3. F/u Neurology recs re: need for LITO, carotid dopplers 4. NGT in place, start TFs today 5. GI PPx; SCDs 6. Isolated fever likely central in origin; monitor; sputum culture negative; WBC normal 7. Keppra per neurology 8. Blood-tinged secretions possible related to bleeding at the time of NG insertion; CXR is clear; would monitor for now 9. Further plans pending clinical course 10. D/w [place] who likely will recommend that she is transferred to a [place] facility; she appears stable for transfer if needed CCt 31 minutes; no family present today Subjective Date of service: 09/15/18 Principal diagnosis: CVA Interval history: No events. Not opening eyes. Moves L arm and leg spontaneously. Tolerates PSV. Having some blood-tinged secretions. Active Medications Acetaminophen (Tylenol) 650 mg PO Q4H PRN PRN Reason: Pain MILD(1-3)/Fever >100.5/[place] Lipase/Protease/Amylase ([address] 10,500 Unit) 1 each FEEDTUBE PRN PRN PRN Reason: For Clogged Feeding Tube Aspirin (Baby Aspirin) 81 mg FEEDTUBE QDAY [facility] Last Admin: 09/15/18 10:11 Dose: 81 mg Documented by: Atorvastatin Calcium (Lipitor) 40 mg PO QHS [facility] Last Admin: 09/13/18 23:37 Dose: 40 mg Documented by: Famotidine (Pepcid) 20 mg IV BID [facility] Last Admin: 09/15/18 10:11 Dose: 20 mg Documented by: Fentanyl (Sublimaze) 50 mcg IV Q10MIN PRN PRN Reason: ANALGESIA Hydromorphone HCl (Dilaudid) 0.5 mg IV Q3H PRN PRN Reason: Pain , Severe (7-10) Last Admin: 09/15/18 03:14 Dose: 0.5 mg Documented by: Hydrophilic Ointment (Vaseline Lip Therapy) 1 applic TP Q2HR PRN PRN Reason: Dry Lips Sodium Chloride (Nacl 0.9% 1000 Ml) 1,000 mls @ 75 mls/hr IV DIRECT [facility] Last Admin: 09/15/18 04:00 Dose: 75 mls/hr Documented by: Levetiracetam 500 mg/ Sodium (Chloride) 105 mls @ 400 mls/hr IV Q6HR [facility] Last Admin: 09/15/18 06:00 Dose: 400 mls/hr Documented by: Insulin Human Lispro (Humalog) 0 unit SUB-Q Q6HR [facility]; Protocol Last Admin: 09/14/18 19:49 Dose: Not Given Documented by: Multi-Ingred Cream/Lotion/Oil/Oint (Artificial Tears Ophth Oint) 1 applic OU Q4HR PRN PRN Reason: Dry Eye(s) Ondansetron HCl (Zofran) 4 mg IV Q8H PRN PRN Reason: Nausea And Vomiting Simple Syrup (Simple Syrup) 15 ml FEEDTUBE PRN PRN PRN Reason: Hypoglycemia Simple Syrup (Simple Syrup) 30 ml FEEDTUBE PRN PRN PRN Reason: Hypoglycemia Sodium Bicarbonate (Sodium Bicarbonate) 325 mg FEEDTUBE PRN PRN PRN Reason: For Clogged Feeding Tube Sodium Chloride (Sodium Chloride Flush Syringe 10 Ml) 10 ml IV BID [facility] Last Admin: 09/14/18 14:30 Dose: Not Given Documented by: Sodium Chloride (Sodium Chloride Flush Syringe 10 Ml) 10 ml IV PRN PRN PRN Reason: LINE FLUSH Objective Vital Signs - 12hr 09/14/18 09/14/18 09/14/18 22:41 22:51 23:01 Temperature Pulse Rate 95 H 97 H 95 H Respiratory 20 17 20 Rate Blood Pressure 144/78 130/65 154/72 O2 Sat by Pulse 100 100 98 Oximetry 09/14/18 09/14/18 09/14/18 23:11 23:21 23:31 Temperature Pulse Rate 95 H 88 98 H Respiratory 21 20 20 Rate Blood Pressure 154/72 154/72 145/75 O2 Sat by Pulse 100 100 98 Oximetry 09/14/18 09/14/18 09/15/18 23:41 23:51 00:00 Temperature 99.0 F Pulse Rate 107 H 91 H Respiratory 20 19 Rate Blood Pressure 145/75 145/75 O2 Sat by Pulse 100 100 100 Oximetry 09/15/18 09/15/18 09/15/18 00:01 00:11 00:21 Temperature Pulse Rate 111 H 90 88 Respiratory 21 20 20 Rate Blood Pressure 145/75 141/75 141/75 O2 Sat by Pulse 99 100 100 Oximetry 09/15/18 09/15/18 09/15/18 00:30 00:41 00:51 Temperature Pulse Rate 91 H 88 91 H Respiratory 20 20 20 Rate Blood Pressure 158/77 158/77 141/75 O2 Sat by Pulse 99 100 100 Oximetry 09/15/18 09/15/18 09/15/18 01:01 01:11 01:20 Temperature Pulse Rate 89 91 H 101 H Respiratory 20 20 20 Rate Blood Pressure 148/79 148/79 O2 Sat by Pulse 98 100 100 Oximetry 09/15/18 09/15/18 09/15/18 01:21 01:30 01:41 Temperature Pulse Rate 93 H 101 H 105 H Respiratory 20 20 20 Rate Blood Pressure 148/79 167/83 167/83 O2 Sat by Pulse 100 98 99 Oximetry 09/15/18 09/15/18 09/15/18 01:51 02:00 02:11 Temperature 99.1 F Pulse Rate 102 H 98 H 97 H Respiratory 17 18 16 Rate Blood Pressure 148/79 129/71 129/71 O2 Sat by Pulse 98 96 97 Oximetry 09/15/18 09/15/18 09/15/18 02:21 02:31 02:41 Temperature Pulse Rate 100 H 121 H 110 H Respiratory 17 27 H 22 Rate Blood Pressure 167/83 167/83 167/83 O2 Sat by Pulse 98 94 Oximetry 09/15/18 09/15/18 09/15/18 02:51 03:01 03:10 Temperature Pulse Rate 110 H 121 H 105 H Respiratory 19 21 23 Rate Blood Pressure 167/83 152/103 152/103 O2 Sat by Pulse 94 99 Oximetry 09/15/18 09/15/18 09/15/18 03:21 03:30 03:41 Temperature Pulse Rate 102 H 103 H 100 H Respiratory 16 21 16 Rate Blood Pressure 152/103 149/82 149/82 O2 Sat by Pulse 93 92 93 Oximetry 09/15/18 09/15/18 09/15/18 03:51 04:00 04:11 Temperature Pulse Rate 101 H 94 H 97 H Respiratory 16 16 15 Rate Blood Pressure 152/103 140/80 140/80 O2 Sat by Pulse 94 95 96 Oximetry 09/15/18 09/15/18 09/15/18 04:21 04:30 04:41 Temperature Pulse Rate 91 H 86 111 H Respiratory 14 15 22 Rate Blood Pressure 140/80 146/82 146/82 O2 Sat by Pulse 97 96 95 Oximetry 09/15/18 09/15/18 09/15/18 04:51 05:00 05:04 Temperature Pulse Rate 114 H 99 H 95 H Respiratory 29 H 14 Rate Blood Pressure 146/82 146/81 146/81 O2 Sat by Pulse 96 95 98 Oximetry 09/15/18 09/15/18 09/15/18 05:11 05:21 05:30 Temperature Pulse Rate 95 H 94 H 105 H Respiratory 18 16 14 Rate Blood Pressure 146/81 146/81 156/76 O2 Sat by Pulse 98 98 94 Oximetry 09/15/18 09/15/18 09/15/18 05:41 05:51 06:00 Temperature Pulse Rate 89 94 H 99 H Respiratory 16 17 18 Rate Blood Pressure 156/76 156/76 139/82 O2 Sat by Pulse 99 99 94 Oximetry 09/15/18 09/15/18 09/15/18 06:11 06:21 06:30 Temperature Pulse Rate 98 H 98 H 90 Respiratory 13 16 15 Rate Blood Pressure 139/82 139/82 145/81 O2 Sat by Pulse 97 99 94 Oximetry 09/15/18 09/15/18 09/15/18 06:41 06:51 07:00 Temperature Pulse Rate 92 H 90 91 H Respiratory 14 15 14 Rate Blood Pressure 145/81 145/81 137/83 O2 Sat by Pulse 98 99 96 Oximetry 09/15/18 09/15/18 09/15/18 07:11 07:21 07:30 Temperature Pulse Rate 93 H 117 H 99 H Respiratory 15 27 H 16 Rate Blood Pressure 137/83 137/83 146/81 O2 Sat by Pulse 100 98 95 Oximetry 09/15/18 09/15/18 09/15/18 07:41 07:51 08:00 Temperature 99 F Pulse Rate 102 H 108 H 101 H Respiratory 19 24 23 Rate Blood Pressure 146/81 146/81 145/81 O2 Sat by Pulse 99 98 96 Oximetry 09/15/18 09/15/18 09/15/18 08:11 08:21 08:30 Temperature Pulse Rate 100 H 101 H 99 H Respiratory 24 26 H 23 Rate Blood Pressure 145/81 145/81 143/80 O2 Sat by Pulse 98 99 97 Oximetry 09/15/18 09/15/18 09/15/18 08:41 08:51 09:00 Temperature Pulse Rate 110 H 108 H 99 H Respiratory 20 23 23 Rate Blood Pressure 143/80 143/80 146/85 O2 Sat by Pulse 100 99 98 Oximetry 09/15/18 09/15/18 09/15/18 09:11 09:21 09:30 Temperature Pulse Rate 99 H 96 H 95 H Respiratory 23 22 23 Rate Blood Pressure 146/85 146/85 142/77 O2 Sat by Pulse 99 100 97 Oximetry 09/15/18 09/15/18 09/15/18 09:41 09:51 10:00 Temperature Pulse Rate 99 H 101 H 100 H Respiratory 19 22 22 Rate Blood Pressure 142/77 142/77 148/77 O2 Sat by Pulse 100 100 99 Oximetry 09/15/18 09/15/18 10:11 10:21 Temperature Pulse Rate 96 H 101 H Respiratory 23 23 Rate Blood Pressure 148/77 148/77 O2 Sat by Pulse 100 100 Oximetry Constitutional: other (intubated, critically ill) Eyes: non-icteric ENT: oropharynx moist Neck: supple Effort: normal Ascultation: Bilateral: other (coarse BS bilaterally) Cardiovascular: regular rate and rhythm (no mrg) Gastrointestinal: normoactive bowel sounds, soft, non-tender, non-distended Integumentary: normal Extremities: no cyanosis, no edema, pink and warm Neurologic: other (poorly responsive, moves L side, does not follow commands or open eyes) Psychiatric: other (unable to assess) CBC and BMP: 09/15/18 04:25 09/15/18 04:25 ABG, PT/INR, D-dimer: ABG POC ABG pH 7.379 (7.35-7.45) 09/15/18 05:03 POC ABG pCO2 49.3 (35-45) H 09/15/18 05:03 POC ABG pO2 292 (80-105) H 09/15/18 05:03 POC ABG HCO3 29.1 09/15/18 05:03 POC ABG Total CO2 31 09/15/18 05:03 POC ABG O2 Sat 100 09/15/18 05:03 PT/INR, D-dimer PT 13.2 Sec. (12.2-14.9) 09/12/18 Unknown INR 0.95 (0.87-1.13) 09/12/18 Unknown Abnormal lab findings: Abnormal Labs 09/12/18 09/12/18 09/12/18 14:56 19:29 20:11 WBC Hct Seg Neutrophils % Seg Neuts % (Manual) Lymphocytes % (Manual) Seg Neutrophils # APTT POC ABG pCO2 POC ABG pO2 307 H Potassium Glucose POC Glucose 194 H Hemoglobin A1c Troponin T 0.045 H D HDL Cholesterol 39 L 09/12/18 09/12/18 09/12/18 20:11 21:17 22:26 WBC Hct Seg Neutrophils % Seg Neuts % (Manual) Lymphocytes % (Manual) Seg Neutrophils # APTT POC ABG pCO2 POC ABG pO2 Potassium Glucose POC Glucose 297 H 291 H Hemoglobin A1c 9.6 H Troponin T HDL Cholesterol 09/12/18 09/12/18 09/12/18 Unknown Unknown Unknown WBC Hct 44.0 H Seg Neutrophils % Seg Neuts % (Manual) 34.0 L Lymphocytes % (Manual) 59.0 H Seg Neutrophils # APTT 21.1 L POC ABG pCO2 POC ABG pO2 Potassium 3.5 L Glucose 213 H POC Glucose Hemoglobin A1c Troponin T HDL Cholesterol 09/13/18 09/13/18 09/13/18 04:19 04:19 05:42 WBC 14.3 H Hct Seg Neutrophils % 82.3 H Seg Neuts % (Manual) Lymphocytes % (Manual) Seg Neutrophils # 11.7 H APTT POC ABG pCO2 POC ABG pO2 Potassium Glucose 289 H POC Glucose 279 H Hemoglobin A1c Troponin T HDL Cholesterol 09/13/18 09/13/18 09/13/18 13:07 18:30 22:58 WBC Hct Seg Neutrophils % Seg Neuts % (Manual) Lymphocytes % (Manual) Seg Neutrophils # APTT POC ABG pCO2 POC ABG pO2 Potassium Glucose POC Glucose 199 H 189 H 214 H Hemoglobin A1c Troponin T HDL Cholesterol 09/14/18 09/14/18 09/14/18 06:19 07:17 07:17 WBC 11.8 H Hct Seg Neutrophils % Seg Neuts % (Manual) Lymphocytes % (Manual) Seg Neutrophils # APTT POC ABG pCO2 POC ABG pO2 Potassium Glucose 215 H POC Glucose 216 H Hemoglobin A1c Troponin T HDL Cholesterol 09/14/18 09/14/18 09/14/18 13:12 19:04 23:24 WBC Hct Seg Neutrophils % Seg Neuts % (Manual) Lymphocytes % (Manual) Seg Neutrophils # APTT POC ABG pCO2 POC ABG pO2 Potassium Glucose POC Glucose 158 H 175 H 165 H Hemoglobin A1c Troponin T HDL Cholesterol 09/15/18 09/15/18 09/15/18 04:25 04:25 05:03 WBC Hct Seg Neutrophils % 72.6 H Seg Neuts % (Manual) Lymphocytes % (Manual) Seg Neutrophils # 7.8 H APTT POC ABG pCO2 49.3 H POC ABG pO2 292 H Potassium Glucose 196 H POC Glucose Hemoglobin A1c Troponin T HDL Cholesterol 09/15/18 05:27 WBC Hct Seg Neutrophils % Seg Neuts % (Manual) Lymphocytes % (Manual) Seg Neutrophils # APTT POC ABG pCO2 POC ABG pO2 Potassium Glucose POC Glucose 173 H Hemoglobin A1c Troponin T HDL Cholesterol Chest x-ray: report reviewed, image reviewed (clear lungs)
[2018-09-15] MEDS ORDERED: SIMPLE SYRUP FEEDTUBE PRN ×2 (10:43)
[2018-09-15] MEDS ORDERED: SODIUM BICARBONATE FEEDTUBE PRN (10:43)
[2018-09-15] MEDS ORDERED: PANCREAZE DR 10,500 UNIT FEEDTUBE PRN (10:43)
[2018-09-15] MEDS ORDERED: TRANSDERM-SCOP TD SCH (11:00)
--- NOTE | 2018-09-15 12:00 | Discharge Summary ---
Providers - Providers Date of Admission: 09/12/18 19:30 Date of discharge: 09/15/18 Attending physician: NANCY MCKEON 09/12/18 15:20 Consult to Dietitian/Nutrition [CONS] Routine Physician Instructions: Reason For Exam: Reason for Consult: Evaluate nutritional intake 09/12/18 19:35 Consult to Dietitian/Nutrition [CONS] Routine Physician Instructions: Reason For Exam: Reason for Consult: Pt needs oral supplement 09/12/18 19:36 Consult to Dietitian/Nutrition [CONS] Routine Physician Instructions: Assess nutrtn needs, initiate, modify, manage TF Reason For Exam: Reason for Consult: Write/Manage Tube Feeding Reason for Consult: Write/Manage Tube Feeding 09/12/18 19:43 Consult to Physician [CONS] Routine Comment: Spoke with Dr. Eaton @ 1955, Dr. Ernst 2 C in [place] Consulting Provider: STORMY LEUNG Physician Instructions: Reason For Exam: resp failure 09/12/18 19:54 Consult to Physician [CONS] Routine Comment: Consulting Provider: SEHRLY HERRERA Physician Instructions: Reason For Exam: CVA 09/12/18 20:20 Occupational Therapy Evaluate and Treat [CONS] Routine Comment: Reason For Exam: Neuro deficits Physical Therapy Evaluation and Treat [CONS] Routine Comment: Reason For Exam: Neuro deficits 09/14/18 14:53 Consult to Dietitian/Nutrition [CONS] Routine Physician Instructions: Reason For Exam: Reason for Consult: Write/Manage Tube Feeding 09/15/18 09:01 Consult to PICC Line RN [CONS] Urgent Reason For Exam: poor venous peripheral access/critical patient Type Line:: Midline Primary care physician: ANDREW BHAKTA Hospitalization Reason for admission: cva Condition: Critical Hospital course: 48 yo went unresponsive at home with subsequent reports of some seizure-like activity. Brought to ED, given TPA for acute CVA. Mentation deteriorated and she developed snoring respirations, thus intubated for airway protection. There was some questionable reaction to TPA and was the patient developed angioedema with lip swelling which also prompted the intubation. Neurology neurology was consulted. MRI revealed multiple embolic appearing strokes especially left temporal and parietal with the largest in the left posterior frontal region reaching the parasagittal cortex and also both insulas, right posterior parietal and right temporal regions all reminiscent of watershed infarcts perhaps in part though suggestive of cardiac or aortic sources are discussed with the family. MRA showed occlusion of left MCA. There was some hemorrhagic transformation of the cortical edges of the left parietal stroke presumably from the TPA. Echocardiogram revealed global left ventricular systolic function hyperdynamic with EF 6570%. No pericardial effusion. No mention of embolic source. Neurology with EEG preliminary reading: Moderately abnormal EEG due to left-sided slowing for which correlation with imaging is advised. This EEG does not exclude epilepsy of partial onset. Up to 4 EEGs over several months may be needed to capture interictal epileptiform activity. The patient remains on mechanical ventilation and poorly responsive. Sedation of fentanyl, Versed and Dilaudid have been discontinued. Patient has undergone PSV trials daily. Neurology recommends knee for further evaluation with LITO and carotid Dopplers. Patient has had isolated fever which is likely central in origin with sputum culture negative and WBC normal. Patient is continued on Keppra per neurology recommendations. [facility] has recommended the patient be transferred to a [facility] facility which case management is arranging for him to be completed today. Dedicated discharge time 34 minutes. Disposition: DC/[facility]- [facility] IP Time spent for discharge: 34 Core Measure Documentation - Palliative Care Palliative Care/ Comfort Measures: Not Applicable - Core Measures Any of the following diagnoses?: stroke, none - Stroke Discharge Requirements Statin for LDL = or >70 mg/dl on DC: Yes Anticoag for atrial fib/atrial flutter: No Reason for no anticoag for AF/F on DC: Medical Contraindication (hemorrhagic conversion) Antithrombotic for ischemic stroke: Yes Exam - Constitutional Vitals: Temp Pulse Resp BP Pulse Ox 99 F 93 H 24 146/87 99 09/15/18 08:00 09/15/18 11:41 09/15/18 11:41 09/15/18 11:41 09/15/18 11:41 General appearance: Present: no acute distress, well-nourished, other (intubated on mechanical ventilation) - EENT Eyes: Present: PERRL ENT: hearing intact, clear oral mucosa - Neck Neck: Present: supple, normal ROM - Respiratory Respiratory effort: normal Respiratory: bilateral: CTA - Cardiovascular Heart Sounds: Present: S1 & S2. Absent: rub, click - Extremities Extremities: pulses symmetrical, No edema Peripheral Pulses: within normal limits - Abdominal General gastrointestinal: Present: soft, non-tender, non-distended, normal bowel sounds Female genitourinary: Present: normal - Integumentary Integumentary: Present: clear, warm, dry - Musculoskeletal Musculoskeletal: gait normal, strength equal bilaterally - Psychiatric Psychiatric: appropriate mood/affect, intact judgment & insight - Neurologic Neurologic: other (Not opening eyes. Moves L arm and leg spontaneously.) Plan Activity: advance as tolerated Weight Bearing Status: Non-Weight Bearing Diet: other (TF) Prescriptions: levETIRAcetam 500 MG/NS 0.75% [Keppra 500 mg/Ns 0.75% 50 ml] 500 mg IV Q6HR #30 bag
--- NOTE | 2018-09-15 13:14 | Cat Scan Report ---
CT HEAD WITHOUT CONTRAST INDICATION: Strokes. Evaluate for edema. COMPARISON: Prior imaging over last few days. FINDINGS: Noncontrast head CT now demonstrates multiple known bilateral MCA territory infarctions, left more than right, developing/becoming better visible on CT and estimated at approximately 3.5 cm high left parietal as on axial image 43, series 2, approximately 3.6 cm left lower parietal as on axial image 35, approximately 3.7 cm left inferior frontal as on axial image 26 and approximately 3.1 cm right subinsular/basal ganglia as on axial image 31, amongst others. Subtle cortical relative hyperdensity as in the left parietal region also noted, nonspecific though subtle hemorrhagic transformation not entirely excluded. Mild mass effect/effacement as on the atrium of the left lateral ventricle also not entirely excluded. No significant midline shift however with exam partly limited due to positioning/obliquity. Mild periventricular hypodensities. Grossly normal posterior fossa with preserved basilar cisterns. A new nasogastric tube coursing the right nasal passage now noted with moderate to severe bilateral ethmoid sinusitis. Mild air-fluid level in the left sphenoid sinus may also now be present with moderate bilateral sphenoid and mild bilateral maxillary and frontal sinusitis. Mild leftward nasal septal deviation. Partially empty sella. Grossly clear mastoid air cells. Normal eye globes. Intact calvarium and scalp. Patient also now intubated. CONCLUSION: 1. Expected interval progression/evolution of extensive bilateral MCA territory infarctions, as described above. 2. Interval intubation and nasogastric tube placement with pansinusitis now noted, as described. Thank you for the opportunity to participate in this patient's care.
--- NOTE | 2018-09-15 14:48 | Progress Note ---
Assessment and Plan Impression: 1. Embolic strokes 2. ICH and SAH 2. Complex partial seizures Plan: 1. Needs LITO since per imaging technician, cannot see right side of heart to do bubbles on regular echo. 2. Spoke to [place] Dr. Grijalva about transfer potentially to neurocritical care unit. New CT today to me shows SAH in sulci near posterior left stroke in parenchyma of that stroke, which I told him. Requested radiology to promptly push images to regional PACs as per his request. 3. May need hypertonic saline to control edema from stroke and hemorrhagic pare nchymal portion. Too hard to do that here since neurologist is here only 4 daytime hours daily Thu-Thursday. 4. Stopped aspirin due to the blood. 30 min critical care time spent. Subjective Date of service: 09/15/18 Principal diagnosis: CVA Interval history: HPI: no seizures, no clinical change, still moves spontaneously on the left, not obeying commands per family. Objective - Exam Narrative Exam: General appearance: well developed but borderline moderately obese late 40's female, intubated. Neurologic Exam: Mental status: no response to orientation questions, no obedience, not tracking me. Cranial Nerves: right field cut to threat, pupils react, not tracking me, positive corneals, Doll's positive but less to right lateral excursion, no grimace to supraorbital pressure. Cerebellar: no tremor of purposeful left arm. 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 pressure or neck or skin pinch. Motor Exam Lower Extremities: moves left leg spontaneously and withdrawing to plantar rub, no motion right side to nailbed pressure or plantar rub. - Vital Sign Vital Signs - 12hr 09/15/18 09/15/18 09/15/18 02:51 03:01 03:10 Temperature Pulse Rate 110 H 121 H 105 H Respiratory 19 21 23 Rate Blood Pressure 167/83 152/103 152/103 O2 Sat by Pulse 94 99 Oximetry 09/15/18 09/15/18 09/15/18 03:21 03:30 03:41 Temperature Pulse Rate 102 H 103 H 100 H Respiratory 16 21 16 Rate Blood Pressure 152/103 149/82 149/82 O2 Sat by Pulse 93 92 93 Oximetry 09/15/18 09/15/18 09/15/18 03:51 04:00 04:11 Temperature Pulse Rate 101 H 94 H 97 H Respiratory 16 16 15 Rate Blood Pressure 152/103 140/80 140/80 O2 Sat by Pulse 94 95 96 Oximetry 09/15/18 09/15/18 09/15/18 04:21 04:30 04:41 Temperature Pulse Rate 91 H 86 111 H Respiratory 14 15 22 Rate Blood Pressure 140/80 146/82 146/82 O2 Sat by Pulse 97 96 95 Oximetry 09/15/18 09/15/18 09/15/18 04:51 05:00 05:04 Temperature Pulse Rate 114 H 99 H 95 H Respiratory 29 H 14 Rate Blood Pressure 146/82 146/81 146/81 O2 Sat by Pulse 96 95 98 Oximetry 09/15/18 09/15/18 09/15/18 05:11 05:21 05:30 Temperature Pulse Rate 95 H 94 H 105 H Respiratory 18 16 14 Rate Blood Pressure 146/81 146/81 156/76 O2 Sat by Pulse 98 98 94 Oximetry 09/15/18 09/15/18 09/15/18 05:41 05:51 06:00 Temperature Pulse Rate 89 94 H 99 H Respiratory 16 17 18 Rate Blood Pressure 156/76 156/76 139/82 O2 Sat by Pulse 99 99 94 Oximetry 09/15/18 09/15/18 09/15/18 06:11 06:21 06:30 Temperature Pulse Rate 98 H 98 H 90 Respiratory 13 16 15 Rate Blood Pressure 139/82 139/82 145/81 O2 Sat by Pulse 97 99 94 Oximetry 09/15/18 09/15/18 09/15/18 06:41 06:51 07:00 Temperature Pulse Rate 92 H 90 91 H Respiratory 14 15 14 Rate Blood Pressure 145/81 145/81 137/83 O2 Sat by Pulse 98 99 96 Oximetry 09/15/18 09/15/18 09/15/18 07:11 07:21 07:30 Temperature Pulse Rate 93 H 117 H 99 H Respiratory 15 27 H 16 Rate Blood Pressure 137/83 137/83 146/81 O2 Sat by Pulse 100 98 95 Oximetry 09/15/18 09/15/18 09/15/18 07:41 07:51 08:00 Temperature 99 F Pulse Rate 102 H 108 H 101 H Respiratory 19 24 23 Rate Blood Pressure 146/81 146/81 145/81 O2 Sat by Pulse 99 98 96 Oximetry 09/15/18 09/15/18 09/15/18 08:11 08:20 08:21 Temperature Pulse Rate 100 H 101 H Respiratory 24 26 H Rate Blood Pressure 145/81 145/81 O2 Sat by Pulse 98 100 99 Oximetry 09/15/18 09/15/18 09/15/18 08:30 08:41 08:51 Temperature Pulse Rate 99 H 110 H 108 H Respiratory 23 20 23 Rate Blood Pressure 143/80 143/80 143/80 O2 Sat by Pulse 97 100 99 Oximetry 09/15/18 09/15/18 09/15/18 09:00 09:11 09:21 Temperature Pulse Rate 99 H 99 H 96 H Respiratory 23 23 22 Rate Blood Pressure 146/85 146/85 146/85 O2 Sat by Pulse 98 99 100 Oximetry 09/15/18 09/15/18 09/15/18 09:30 09:41 09:51 Temperature Pulse Rate 95 H 99 H 101 H Respiratory 23 19 22 Rate Blood Pressure 142/77 142/77 142/77 O2 Sat by Pulse 97 100 100 Oximetry 09/15/18 09/15/18 09/15/18 10:00 10:11 10:21 Temperature Pulse Rate 100 H 96 H 101 H Respiratory 22 23 23 Rate Blood Pressure 148/77 148/77 148/77 O2 Sat by Pulse 99 100 100 Oximetry 09/15/18 09/15/18 09/15/18 10:30 10:41 10:51 Temperature Pulse Rate 94 H 96 H 113 H Respiratory 22 23 22 Rate Blood Pressure 149/86 149/86 149/86 O2 Sat by Pulse 100 100 99 Oximetry 09/15/18 09/15/18 09/15/18 11:00 11:11 11:21 Temperature Pulse Rate 101 H 95 H 99 H Respiratory 26 H 24 24 Rate Blood Pressure 150/81 150/81 150/81 O2 Sat by Pulse 96 99 100 Oximetry 09/15/18 09/15/18 09/15/18 11:30 11:41 12:00 Temperature Pulse Rate 99 H 93 H 93 H Respiratory 22 24 28 H Rate Blood Pressure 146/87 146/87 O2 Sat by Pulse 99 99 99 Oximetry - Laboratory Findings CBC and BMP: 09/15/18 04:25 09/15/18 04:25 Abnormal Lab Findings: Abnormal Labs 09/12/18 09/12/18 09/12/18 14:56 19:29 20:11 WBC Hct Seg Neutrophils % Seg Neuts % (Manual) Lymphocytes % (Manual) Seg Neutrophils # APTT POC ABG pCO2 POC ABG pO2 307 H Potassium Glucose POC Glucose 194 H Hemoglobin A1c Troponin T 0.045 H D HDL Cholesterol 39 L 09/12/18 09/12/18 09/12/18 20:11 21:17 22:26 WBC Hct Seg Neutrophils % Seg Neuts % (Manual) Lymphocytes % (Manual) Seg Neutrophils # APTT POC ABG pCO2 POC ABG pO2 Potassium Glucose POC Glucose 297 H 291 H Hemoglobin A1c 9.6 H Troponin T HDL Cholesterol 09/12/18 09/12/18 09/12/18 Unknown Unknown Unknown WBC Hct 44.0 H Seg Neutrophils % Seg Neuts % (Manual) 34.0 L Lymphocytes % (Manual) 59.0 H Seg Neutrophils # APTT 21.1 L POC ABG pCO2 POC ABG pO2 Potassium 3.5 L Glucose 213 H POC Glucose Hemoglobin A1c Troponin T HDL Cholesterol 09/13/18 09/13/18 09/13/18 04:19 04:19 05:42 WBC 14.3 H Hct Seg Neutrophils % 82.3 H Seg Neuts % (Manual) Lymphocytes % (Manual) Seg Neutrophils # 11.7 H APTT POC ABG pCO2 POC ABG pO2 Potassium Glucose 289 H POC Glucose 279 H Hemoglobin A1c Troponin T HDL Cholesterol 09/13/18 09/13/18 09/13/18 13:07 18:30 22:58 WBC Hct Seg Neutrophils % Seg Neuts % (Manual) Lymphocytes % (Manual) Seg Neutrophils # APTT POC ABG pCO2 POC ABG pO2 Potassium Glucose POC Glucose 199 H 189 H 214 H Hemoglobin A1c Troponin T HDL Cholesterol 09/14/18 09/14/18 09/14/18 06:19 07:17 07:17 WBC 11.8 H Hct Seg Neutrophils % Seg Neuts % (Manual) Lymphocytes % (Manual) Seg Neutrophils # APTT POC ABG pCO2 POC ABG pO2 Potassium Glucose 215 H POC Glucose 216 H Hemoglobin A1c Troponin T HDL Cholesterol 09/14/18 09/14/18 09/14/18 13:12 19:04 23:24 WBC Hct Seg Neutrophils % Seg Neuts % (Manual) Lymphocytes % (Manual) Seg Neutrophils # APTT POC ABG pCO2 POC ABG pO2 Potassium Glucose POC Glucose 158 H 175 H 165 H Hemoglobin A1c Troponin T HDL Cholesterol 09/15/18 09/15/18 09/15/18 04:25 04:25 05:03 WBC Hct Seg Neutrophils % 72.6 H Seg Neuts % (Manual) Lymphocytes % (Manual) Seg Neutrophils # 7.8 H APTT POC ABG pCO2 49.3 H POC ABG pO2 292 H Potassium Glucose 196 H POC Glucose Hemoglobin A1c Troponin T HDL Cholesterol 09/15/18 09/15/18 05:27 12:41 WBC Hct Seg Neutrophils % Seg Neuts % (Manual) Lymphocytes % (Manual) Seg Neutrophils # APTT POC ABG pCO2 POC ABG pO2 Potassium Glucose POC Glucose 173 H 166 H Hemoglobin A1c Troponin T HDL Cholesterol
[2018-09-15] MEDS: HumaLOG SUB-Q SCH (18:18)
--- NOTE | 2018-09-15 19:09 | Event Note ---
Date: 09/15/18 I d/w the neuro-fast food shift lead at [facility] regarding the pts. care. He is willing to accept the transfer but wanted me to convey that there may not be much more that he can do regarding care. I d/w sister Sammi poor prognosis and updated her with regards to the new CT results total time coordinating care and transfer additional 40 minutes
[2018-09-15 19:32] VITALS: BP 147/81
== END 2018-09-15 21:06 | disposition short-term general hospital (02) | DRG 61 ==
LOC: ED 14:05 → CC1 19:30
PROVIDERS: ADMIT Internal Medicine; ATTEND Hospitalist
PROC: 3E03317 Introduction of Other Thrombolytic into Peripheral Vein, Percutaneous Approach (ICD-10-PCS; principal; 2018-09-12)
PROC: 4A033R1 Measurement of Arterial Saturation, Peripheral, Percutaneous Approach (ICD-10-PCS; 2018-09-12)
PROC: 5A1945Z Respiratory Ventilation, 24-96 Consecutive Hours (ICD-10-PCS; 2018-09-12)
PROC: 0BH17EZ Insertion of Endotracheal Airway into Trachea, Via Natural or Artificial Opening (ICD-10-PCS; 2018-09-12)
PROC: 0XH933Z Insertion of Infusion Device into Left Upper Arm, Percutaneous Approach (ICD-10-PCS; 2018-09-15)
DX: I63.10 Cerebral infarction due to embolism of unspecified precerebral artery (principal); J96.01 Acute respiratory failure with hypoxia; I61.1 Nontraumatic intracerebral hemorrhage in hemisphere, cortical; Z68.41 Body mass index [BMI] 40.0-44.9, adult; G81.91 Hemiplegia, unspecified affecting right dominant side; E11.9 Type 2 diabetes mellitus without complications; K80.80 Other cholelithiasis without obstruction; I10 Essential (primary) hypertension; E66.01 Morbid (severe) obesity due to excess calories; F17.210 Nicotine dependence, cigarettes, uncomplicated; T78.3XXA Angioneurotic edema, initial encounter; I66.02 Occlusion and stenosis of left middle cerebral artery; G40.909 Epilepsy, unspecified, not intractable, without status epilepticus; R47.81 Slurred speech; E78.5 Hyperlipidemia, unspecified; T45.615A Adverse effect of thrombolytic drugs, initial encounter; W18.30XA Fall on same level, unspecified, initial encounter; Y93.89 Activity, other specified; Y92.040 Kitchen in boarding-house as the place of occurrence of the external cause; Y99.8 Other external cause status; Z88.8 Allergy status to other drugs, medicaments and biological substances; Z79.84 Long term (current) use of oral hypoglycemic drugs; Y92.238 Other place in hospital as the place of occurrence of the external cause
CPT/HCPCS: 36415; 36600; 70450; 70496; 70498; 70544; 70551; 71045; 72125; 74018; 80048; 80053; 80061; 80320; 82550; 82553; 82803; 82962; 83036; 83735; 84100; 84484; 85007; 85025; 85027; 85610; 85670; 85730; 86850; 86900; 86901; 87070; 87205; 93005; 93010; 93306; 93880; 94002; 94003; 95819; 96365; 96372; 96375; 99292; G0378; A9270-GY; G0480; J0330; J0360; J1170; J1200; J1815; J1953; J2250; J2930; J2997; J3010; J3480; J7030; Q9967

== ENCOUNTER 2019-06-04 18:53 | Emergency (ER) | payer OTHER ==
[2019-06-04 20:24] LABS: Bilirubin,Urine NEG (Negative); Blood,Urine MOD (Negative); Color,Urine Yellow (Yellow); Hyaline Casts,Urine 1 /LPF; Protein,Urine <15 mg/dL mg/dL (Negative); WBC,Urine < 1.0 /HPF (0.0-6.0)
--- NOTE | 2019-06-04 20:24 | Emergency Department Report ---
ED Altered Mental Status HPI - General Chief Complaint: Extremity Problem,Nontraumatic Stated Complaint: L SIDE PAIN Time Seen by Provider: 06/04/19 19:48 Source: patient, EMS Mode of arrival: Stretcher Limitations: Physical Limitation (altered mental status patient non- communicative. Sister at bedside reports patient had a CVA in August. Reports patient has not spoken normally since the incident. Reports patient has not walked since approximately 4 months ago when she left rehab and began living with her sister.) - History of Present Illness Initial Comments: Sister brings patient with reports the patient is behaving abnormally today. Reports patient is complaining that her left side is hurting. Reports the patient is on Pradaxa. Denies trauma. Reports the patient lives with her and that she is unable to care for the patient any longer. Reports the patient is not safe at home. -: days(s) (1) - Related Data Home Medications Medication Instructions Recorded Confirmed Last Taken AtorvaSTATin [Lipitor] 40 mg PO QHS 06/04/19 06/04/19 Unknown DULoxetine [Cymbalta] 30 mg PO DAILY 06/04/19 06/04/19 Unknown Dabigatran Etexilate Mesylate 150 mg PO BID 06/04/19 06/04/19 Unknown [Pradaxa] FLUoxetine [PROzac] 20 mg PO QDAY 06/04/19 06/04/19 Unknown Lisinopril/Hydrochlorothiazide 1 each PO DAILY 06/04/19 06/04/19 Unknown [Zestoretic 20-12.5 mg] QUEtiapine [SEROquel] 50 mg PO TID 06/04/19 06/04/19 Unknown glipiZIDE [Glucotrol] 10 mg PO BID 06/04/19 06/04/19 Unknown traMADol [Ultram] 50 mg PO BID 06/04/19 06/04/19 Unknown Allergies Allergy/AdvReac Type Severity Reaction Status Date / Time alteplase Allergy Angioedema Verified 09/14/18 07:32 ED Review of Systems ROS: Stated complaint: L SIDE PAIN Other details as noted in HPI Comment: Unobtainable due to pts medical conditions ED Past Medical Hx - Past Medical History Hx Hypertension: Yes Hx CVA: Yes Hx Congestive Heart Failure: No Hx Diabetes: Yes Hx Deep Vein Thrombosis: No Hx Psychiatric Treatment: Yes (bipolar) Hx Asthma: No Hx COPD: No - Surgical History Hx Pacemaker: No Hx Internal Defibrillator: No - Social History Smoking Status: Former Smoker Substance Use Type: None - Medications Home Medications: Home Medications Medication Instructions Recorded Confirmed Last Taken Type AtorvaSTATin [Lipitor] 40 mg PO QHS 06/04/19 06/04/19 Unknown History DULoxetine [Cymbalta] 30 mg PO DAILY 06/04/19 06/04/19 Unknown History Dabigatran Etexilate Mesylate 150 mg PO BID 06/04/19 06/04/19 Unknown History [Pradaxa] FLUoxetine [PROzac] 20 mg PO QDAY 06/04/19 06/04/19 Unknown History Lisinopril/Hydrochlorothiazide 1 each PO DAILY 06/04/19 06/04/19 Unknown History [Zestoretic 20-12.5 mg] QUEtiapine [SEROquel] 50 mg PO TID 06/04/19 06/04/19 Unknown History glipiZIDE [Glucotrol] 10 mg PO BID 06/04/19 06/04/19 Unknown History traMADol [Ultram] 50 mg PO BID 06/04/19 06/04/19 Unknown History ED Physical Exam - General Limitations: Physical Limitation - Other Other exam information: GENERAL: Patient in no acute distress HEAD: Normocephalic, atraumatic EYES: PERRLA, EOM intact, no scleral icterus, no conjunctival hemorrhage NOSE: No tenderness, discharge, sinus tenderness MOUTH: No erythema, bleeding, exudate HEART: Regular rate and rhythm, no murmur, S1-S2 are auscultated, no edema, pulses are symmetric LUNGS: No respiratory distress. Bilateral breath sounds, No tachypnea, No retractions, No wheezing, rales, rhonchi ABDOMEN: Normal bowel sounds, abdomen soft, no tenderness, no rebound, no guarding, no distention, no masses, no CVA tenderness MUSCULOSKELETAL: Left hip tenderness, pain with passive ROM left hip, no redness, no swelling NEUROLOGIC: Alert, Cranial nerves intact, gross sensation intact, right sided weakness SKIN: Skin is warm and dry, no wounds, no rashes - Lab Data Result diagrams: 06/04/19 20:44 06/04/19 20:44 Lab Results 06/04/19 06/04/19 06/04/19 Range/Units 20:10 20:44 20:44 WBC 7.7 (4.5-11.0) K/mm3 RBC 4.56 (3.65-5.03) M/mm3 Hgb 13.0 (10.1-14.3) gm/dl Hct 39.1 (30.3-42.9) % MCV 86 (79-97) fl MCH 28 (28-32) pg MCHC 33 (30-34) % RDW 16.4 H (13.2-15.2) % Plt Count 353 (140-440) K/mm3 Lymph % (Auto) 41.6 H (13.4-35.0) % [place] % (Auto) 5.6 (0.0-7.3) % Eos % (Auto) 2.1 (0.0-4.3) % Baso % (Auto) 0.5 (0.0-1.8) % Lymph # 3.2 (1.2-5.4) K/mm3 [place] # 0.4 (0.0-0.8) K/mm3 Eos # 0.2 (0.0-0.4) K/mm3 Baso # 0.0 (0.0-0.1) K/mm3 Seg Neutrophils % 50.2 (40.0-70.0) % Seg Neutrophils # 3.8 (1.8-7.7) K/mm3 PT 15.2 H (12.2-14.9) Sec. INR 1.21 H (0.87-1.13) APTT 103.9 H* (24.2-36.6) Sec. Sodium (137-145) mmol/L Potassium (3.6-5.0) mmol/L Chloride (98-107) mmol/L Carbon Dioxide (22-30) mmol/L Anion Gap mmol/L BUN (7-17) mg/dL Creatinine (0.7-1.2) mg/dL Estimated GFR ml/min BUN/Creatinine Ratio % Glucose (65-100) mg/dL Calcium (8.4-10.2) mg/dL Total Bilirubin (0.1-1.2) mg/dL AST (5-40) units/L ALT (7-56) units/L Alkaline Phosphatase (35-129) units/L Troponin T (0.00-0.029) ng/mL Total Protein (6.3-8.2) g/dL Albumin (3.9-5) g/dL Albumin/Globulin Ratio % Urine Color Yellow (Yellow) Urine Turbidity Clear (Clear) Urine pH 6.0 (5.0-7.0) Ur Specific [place] 1.015 (1.003-1.030) Urine Protein <15 mg/dl (Negative) mg/dL Urine Glucose (UA) Neg (Negative) mg/dL Urine Ketones Neg (Negative) mg/dL Urine Blood Mod (Negative) Urine Nitrite Neg (Negative) Urine Bilirubin Neg (Negative) Urine Urobilinogen 4.0 (<2.0) mg/dL Ur Leukocyte Esterase Neg (Negative) Urine WBC (Auto) < 1.0 (0.0-6.0) /HPF Urine RBC (Auto) 92.0 (0.0-6.0) /HPF U Epithel Cells (Auto) 1.0 (0-13.0) /HPF Hyaline Casts 1 /LPF 06/04/19 Range/Units 20:44 WBC (4.5-11.0) K/mm3 RBC (3.65-5.03) M/mm3 Hgb (10.1-14.3) gm/dl Hct (30.3-42.9) % MCV (79-97) fl MCH (28-32) pg MCHC (30-34) % RDW (13.2-15.2) % Plt Count (140-440) K/mm3 Lymph % (Auto) (13.4-35.0) % [place] % (Auto) (0.0-7.3) % Eos % (Auto) (0.0-4.3) % Baso % (Auto) (0.0-1.8) % Lymph # (1.2-5.4) K/mm3 [place] # (0.0-0.8) K/mm3 Eos # (0.0-0.4) K/mm3 Baso # (0.0-0.1) K/mm3 Seg Neutrophils % (40.0-70.0) % Seg Neutrophils # (1.8-7.7) K/mm3 PT (12.2-14.9) Sec. INR (0.87-1.13) APTT (24.2-36.6) Sec. Sodium 137 (137-145) mmol/L Potassium 4.3 (3.6-5.0) mmol/L Chloride 98.8 (98-107) mmol/L Carbon Dioxide 24 (22-30) mmol/L Anion Gap 19 mmol/L BUN 17 (7-17) mg/dL Creatinine 0.9 (0.7-1.2) mg/dL Estimated GFR > 60 ml/min BUN/Creatinine Ratio 19 % Glucose 87 (65-100) mg/dL Calcium 9.6 (8.4-10.2) mg/dL Total Bilirubin 0.30 (0.1-1.2) mg/dL AST 15 (5-40) units/L ALT 13 (7-56) units/L Alkaline Phosphatase 110 (35-129) units/L Troponin T < 0.010 (0.00-0.029) ng/mL Total Protein 7.7 (6.3-8.2) g/dL Albumin 3.8 L (3.9-5) g/dL Albumin/Globulin Ratio 1.0 % Urine Color (Yellow) Urine Turbidity (Clear) Urine pH (5.0-7.0) Ur Specific [place] (1.003-1.030) Urine Protein (Negative) mg/dL Urine Glucose (UA) (Negative) mg/dL Urine Ketones (Negative) mg/dL Urine Blood (Negative) Urine Nitrite (Negative) Urine Bilirubin (Negative) Urine Urobilinogen (<2.0) mg/dL Ur Leukocyte Esterase (Negative) Urine WBC (Auto) (0.0-6.0) /HPF Urine RBC (Auto) (0.0-6.0) /HPF U Epithel Cells (Auto) (0-13.0) /HPF Hyaline Casts /LPF When compared to previous EKG there are: no significant change - Radiology Data Radiology results: report reviewed - Medical Decision Making At 2319 patient comfortable. Daughter at bedside in the ER updated with results. Dr. Carlin Puckett updated. Reports he will call back with recommendations At 7120 Dr. Gillis call back. Requests transfer the patient to [facility] for further evaluation. Dr. Kong accepting physician. Patient family updated about transfer. Critical care attestation.: If time is entered above; I have spent that time in minutes in the direct care of this critically ill patient, excluding procedure time. ED Disposition Clinical Impression: Failure to thrive in adult Altered mental status Qualifiers: Altered mental status type: unspecified Qualified Code(s): R41.82 - Altered mental status, unspecified Disposition: DC/[place]-70 ANOTHER TYPE HLTHCARE Is pt being admited?: No Condition: Stable [facility] - 3-5 Days
--- NOTE | 2019-06-04 20:48 | Cat Scan Report ---
CT CERVICAL SPINE WITHOUT CONTRAST INDICATION: Fall. TECHNIQUE: All CT scans at this location are performed using CT dose reduction for ALARA by means of automated e xposure control. Axial CT images were obtained through the cervical spine. Sagittal and coronal reformatted images we re produced. COMPARISON: CT cervical spine 09/12/2018 FINDINGS: Fracture: None. Subluxation: None. Spinal canal: No significant compromise. Disc spaces: Normal. Facet joints: Normal. Paraspinal soft tissues: No soft tissue swelling. Normal. Additional findings: None. Lung apices: Normal. IMPRESSION: 1. No acute findings. Signer Name: Flaco Sue MD Signed: 06/04/2019 8:44 PM Workstation Name: [id number]
--- NOTE | 2019-06-04 20:53 | Cat Scan Report ---
CT HEAD WITHOUT CONTRAST INDICATION / CLINICAL INFORMATION: Alterted Mental Status. TECHNIQUE: All CT scans at this location are performed using CT dose reduction for ALARA by means of automated e xposure control. COMPARISON: Head CT 09/15/2018 FINDINGS: HEMORRHAGE: None. EXTRA-AXIAL SPACES: Normal in size and morphology for the patient's age. VENTRICULAR SYSTEM: Normal in size and morphology for the patient's age. CEREBRAL PARENCHYMA: Extensive encephalomalacia left frontal and parietal lobes from previous CVA. Sm all old infarct involving right posterior frontal lobe. No new large territorial infarction. MIDLINE SHIFT OR HERNIATION: None. CEREBELLUM / BRAINSTEM: No significant abnormality. ORBITS: Normal as visualized. SOFT TISSUES of HEAD: No significant abnormality. CALVARIUM: No significant abnormality. PARANASAL SINUSES / MASTOID AIR CELLS: Normal as visualized. ADDITIONAL FINDINGS: None. IMPRESSION: 1. Expected interval evolution of the extensive left MCA and right posterior frontal CVA since 2018. 2. No intracranial bleed or new large territorial infarction. Signer Name: Flaco Sue MD Signed: 06/04/2019 8:48 PM Workstation Name: [id number]
[2019-06-04 21:03] LABS: Hematocrit 39.1 % (30.3-42.9); Lymphocytes % (Auto) 41.6 % (13.4-35.0); Mean Corpuscular HGB Conc 33 % (30-34); Mean Corpuscular Volume 86 fl (79-97); Monocytes % (Auto) 5.6 % (0.0-7.3); Platelet Count 353 K/mm3 (140-440); Red Blood Count 4.56 M/mm3 (3.65-5.03); Red Cell Distribution Width 16.4 % (13.2-15.2)
--- NOTE | 2019-06-04 21:03 | XRay Report ---
LEFT HIP 2 VIEW(S) INDICATION / CLINICAL INFORMATION: lt hip pain COMPARISON: None available. FINDINGS: BONES / JOINT(S): No acute fracture or subluxation. Mild degenerative arthrosis of both hips. SOFT TISSUES: No significant abnormality. ADDITIONAL FINDINGS: None. Signer Name: Flaco Sue MD Signed: 06/04/2019 8:59 PM Workstation Name: [email or web address]
[2019-06-04 21:04] LABS: Basophils % (Auto) 0.5 % (0.0-1.8); Eosinophils # (Auto) 0.2 K/mm3 (0.0-0.4); Eosinophils % (Auto) 2.1 % (0.0-4.3); Lymphocytes # (Auto) 3.2 K/mm3 (1.2-5.4); Monocytes # (Auto) 0.4 K/mm3 (0.0-0.8)
--- NOTE | 2019-06-04 21:04 | XRay Report ---
CHEST 1 VIEW 06/04/2019 8:34 PM INDICATION / CLINICAL INFORMATION: altered mental status. COMPARISON: Chest x-ray 09/15/2018 FINDINGS: SUPPORT DEVICES: Leadless cardiac pacemaker device. HEART / MEDIASTINUM: No significant abnormality. LUNGS / PLEURA: No significant pulmonary or pleural abnormality. No pneumothorax. ADDITIONAL FINDINGS: No significant additional findings. IMPRESSION: 1. No acute findings. Signer Name: Flaco Sue MD Signed: 06/04/2019 9:00 PM Workstation Name: [id number]
[2019-06-04 21:09] LABS: INR 1.21 (0.87-1.13)
[2019-06-04] MEDS ORDERED: MORPHINE 2 MG/1 ML INJ IV ONE (21:09)
[2019-06-04 21:16] LABS: Partial Thromboplastin Time 103.9 Sec. (24.2-36.6)
[2019-06-04 22:03] LABS: Alanine Aminotransferase 13 units/L (7-56); Albumin 3.8 g/dL (3.9-5); BUN/Creatinine Ratio 19; Blood Urea Nitrogen 17 mg/dL (7-17); Calcium 9.6 mg/dL (8.4-10.2); Hemolysis Index 7
[2019-06-05 01:46] VITALS: BP 119/50
== END 2019-06-05 01:15 | disposition other institution (70) ==
LOC: ED 18:53
DX: R62.7 Adult failure to thrive (principal); R41.82 Altered mental status, unspecified; I10 Essential (primary) hypertension; E11.8 Type 2 diabetes mellitus with unspecified complications; F31.9 Bipolar disorder, unspecified; Z86.73 Personal history of transient ischemic attack (TIA), and cerebral infarction without residual deficits; Z87.891 Personal history of nicotine dependence; Z79.899 Other long term (current) drug therapy; Z88.8 Allergy status to other drugs, medicaments and biological substances
CPT/HCPCS: 36415; 70450; 71045; 72125; 73502; 80048; 80053; 81001; 82803; 84484; 85025; 85610; 85730; 93005; 93010; 96374; 99285; J2270